=== PATIENT | male | born 1950 | race Caucasian/White ===

== ENCOUNTER 2022-01-14 08:02 | Outpatient (REF) | payer OTHER, SELFPAY ==
--- NOTE | ~2022-01-14 | US_ITS ---
EXAMINATION: RIGHT AND LEFT LOWER EXTREMITY VENOUS ULTRASOUND (REFLUX EXAM) CLINICAL INDICATION: Leg edema. COMPARISON: None TECHNIQUE: Color flow triplex imaging and compression Doppler was performed to evaluate both the deep and the superficial systems bilaterally. To evaluate the superficial system, the examination was performed in the upright position. Color-flow Doppler ultrasound and compression ultrasound were utilized. In addition, maneuvers were utilized to demonstrate reflux. FINDINGS: 1. DEEP VENOUS ULTRASOUND OF THE RIGHT LOWER EXTREMITY: Respiratory variation, normal compression and augmented flow are noted in the right common femoral vein as well as the right popliteal vein and there is no evidence of deep venous thrombosis at these locations. There is no evidence of reflux in the common femoral vein. There is some reflux within the popliteal vein up to 0.8 seconds in duration. No popliteal fossa cyst. No popliteal artery aneurysm. 2. SUPERFICIAL ULTRASOUND WITH DOPPLER OF RIGHT LOWER EXTREMITY: The right great saphenous vein at the saphenofemoral junction measures 8 mm, at the midthigh 7 mm, [id number] 7 mm, [id number] 6 mm, at midcalf 6 mm and at the ankle measures 3 mm. There is venous insufficiency seen for greater than 3 seconds in duration from the saphenofemoral junction through the mid calf. At the ankle there is reflux present up to about 1.1 seconds duration. The right small saphenous vein measures 6 mm and shows no significant reflux. There is a 7 mm reservation sales agent seen within the proximal calf. 3. DEEP VENOUS ULTRASOUND OF THE LEFT LOWER EXTREMITY: Respiratory variation, normal compression and augmented flow are noted in the left common femoral vein as well as the left popliteal vein and there is no evidence of deep venous thrombosis at these locations. There is no evidence of reflux in the deep system in either the common femoral vein or the popliteal vein. No popliteal fossa cyst or popliteal artery aneurysm. 4. SUPERFICIAL ULTRASOUND WITH DOPPLER OF LEFT LOWER EXTREMITY: Left great saphenous vein at the saphenofemoral junction measures 9 mm, at the midthigh 3 mm, ehqeo-jus-[id number] 2 mm, bzynj-bjh-[id number] 3 mm, at midcalf 2 mm and at the ankle measures 2 mm. Within the proximal thigh there is venous insufficiency out to 1.5 seconds however there is no reflux evident at the saphenofemoral junction. The left small saphenous vein measures 2 mm and shows no reflux. US/US venous duplex LE BI IMPRESSION: 1. No evidence of acute deep venous thrombosis of the right or left legs. 2. Venous insufficiency throughout the right lower extremity from saphenofemoral junction through ankle. 3. Venous insufficiency within the left proximal thigh but without insufficiency noted at the saphenofemoral junction. 4. A 7 mm right calf reservation sales agent.
== END 2022-01-14 08:03 | disposition home or self-care (01) ==
LOC: HO.US 08:02
PROVIDERS: Visit Provider Physician Assistant
DX: R60.0 Localized edema (principal)
CPT/HCPCS: 93970

== ENCOUNTER → 2024-09-24 10:02 | Outpatient (REF) | payer OTHER, SELFPAY ==
--- NOTE | 2024-09-24 10:11 | CA_ITS ---
Transthoracic Echocardiogram Patient (Last, First, Middle): Ganesh Rae, Gender: Male Date of : 1950 Age: 74 Procedure Date: 09/24/2024 Procedure Type: Transthoracic Echocardiogram Location: OP Height: 182.88 cm Weight: 96.62 kg BSA: 2.19 m2 Heart Rate: bpm BP: 158 / 78 mmHg Traffic Lieutenant: GENTRY Referring MD: Dolly PALACIO Symptoms: MATEUSZ.2 PALPS Study Quality: Fair, contrast ECG Rhythm: Sinus Conclusions: - The left ventricular systolic function is normal. The calculated ejection fraction is 66% by biplane method. - There is moderately increased left ventricular wall thickness. - There is mild calcification of the aortic valve. - There is mild mitral annular calcification. Findings Procedure Information Contrast agent, definity, is being given per protocol without apparent complications. Left Ventricle Normal left ventricular cavity size. There is moderately increased left ventricular wall thickness. The left ventricular systolic function is normal. The calculated ejection fraction is 66% by biplane method. There is no evidence of regional wall motion abnormalities. Evidence suggests grade I (mild) diastolic dysfunction. Right Ventricle Normal right ventricular cavity size and systolic function. Atria The left atrium is mildly dilated. The right atrium is normal in size. Aortic Valve There is a normal trileaflet aortic valve. There is mild calcification of the aortic valve. There is no aortic valve stenosis. There is no aortic valve regurgitation. Mitral Valve There is mild mitral annular calcification. There is no mitral valve regurgitation. There is no mitral valve stenosis. Pulmonic Valve The pulmonic valve is likely normal. Tricuspid Valve There is mild tricuspid valve regurgitation. There is no evidence of pulmonary hypertension. Great Vessels The asc aorta is normal in size. Venous The inferior vena cava is normal in size and collapses greater than 50% with inspiration. Pericardium/Pleural There is no evidence of pericardial effusion. Prior Study Comparison No prior study available for comparison. Measurements 2D Linear Measurements IVSd: 1.18 0.6-0.9/0.6-1.0 cm LVIDd: 4.96 3.9-5.3/4.2-5.9 cm LVIDd Index: 2.26 2.4-3.2/2.2-3.1 cm/m2 LVIDs: 3.58 2.0-3.6 cm LVPWd: 1.30 0.7-1.1 cm LA Diam: 4.00 2.7-3.8/3.0-4.0 cm LAIDs Index: 1.83 1.5-2.3 cm/m2 LV Mass: 301.40 67-162/88-224 g LV Mass Index: 137.63 43-95/49-115 g/m2 LVOT Diam: 2.00 3.0+(-)1.3 cm 2D Systolic Function EF 4C: 58.90 >55% EF 2C: 70.20 >55% EF BiP: 66.20 >55% Mitral Valve MV Pk E: 0.60 MV PK A: 1.05 MV Decel Time: 371.00 E/A: 0.60 E'Lateral: 3.81 E'Medial: 2.50 E/E' Med: 24.20 E/E' Lat: 15.90 PHT: 109.00 MVA PHT: 2.02 Decel [place]: 1.63 Aortic Valve AoV Pk Eddie: 1.62 AoV Mn Eddie: 1.19 AoV VTI: 0.38 AoV Pk Grad: 10.00 Aov Mn Grad: 6.00 MICHELLE Cont.VTI: 1.84 LVOT LVOT Pk Eddie: 1.01 LVOT Mn Eddie: 0.64 LVOT VTI: 0.22 LVOT Pk Grad: 4.00 LVOT Mn Grad: 2.00 LVOT Diam: 2.00 LVOT Area: 3.14 Diastolic Function MV Pk E: 0.60 MV Pk A: 1.05 E/A: 0.60 E'Medial: 2.50 E/E' Med: 24.20 E' Laterial: 3.81 E/E' Lat: 15.90 Right Ventricle TAPSE (mm): 24.30 TVS' Eddie: 13.10 Tricuspid Valve TR Pk Eddie: 2.81 TR Pk Grad: 32.00 RA Press: 3.00 RVSP: 35.00 Great Vessels Aorta Sinus of Valsalva: 3.62 2.0-3.[address] [place]: 2.86 1.7-3.4 cm Ao Asc: 3.90 2.1-3.4 cm Updated in Other Vendor System with Status of Final Ryan Galarza MD electronically signed on 09/24/2024 11:52:47 AM with status of Final
== END ==
LOC: HO.CARD 10:02
PROVIDERS: PCP Internal Medicine; Visit Provider Physician Assistant
DX: R00.2 Palpitations (principal)
CPT/HCPCS: 93242; 93306; Q9957

== ENCOUNTER → 2024-09-24 10:11 | Outpatient (BNV) | payer OTHER, SELFPAY | PROVIDERS: PCP Internal Medicine; Visit Provider Internal Medicine | DX: I35.0 Nonrheumatic aortic (valve) stenosis (principal); I34.81 Nonrheumatic mitral (valve) annulus calcification | CPT/HCPCS: 93306 ==

== ENCOUNTER 2024-09-27 13:39 | Outpatient (REF) | payer OTHER, SELFPAY ==
--- NOTE | ~2024-09-27 | XR_ITS ---
EXAMINATION: XR SCREENING FILM FOR MR HISTORY: PRE MRI ORBITS COMPARISON: There are no prior studies for comparison. FINDINGS: Three views of the orbits demonstrate no radiopaque foreign body. The visualized paranasal sinuses are clear. XR/XR pre mri screening IMPRESSION: No evidence of radiopaque foreign body in the orbits. Electronically signed by: Uli Bedoya MD 09/27/2024 03:10 PM EDT
--- OUTSIDE RECORDS SUMMARY | 2024-09-27 15:59 | XMS_ITS | Data Portability ---
Author Organization [facility] Service Address [address] [place] [address] Assessment No assessment recorded. Plan of Treatment Reminders Order Date Submit Date Provider Last Modified By Organization Details Last Modified Time Details Appointments FOLLOW UP 15 2024 09:45A PIA WRIGHT Not available Not available Not available Lab uric acid, serum or plasma 2024 025 [facility], [place], [address], 09/03/2024 15:23:03 hemoglobi n A1c, QN, blood 2024 025 [facility], [place], [address], 09/03/2024 15:23:03 CMP, serum or plasma 2024 025 [facility], [place], [address], 09/03/2024 15:23:03 CBC w/ auto diff 2024 025 [facility], [place], [address], 09/03/2024 15:23:03 lipid panel, blood 2024 025 [facility], [place], [address], 09/03/2024 15:23:03 lipid panel, serum 2023 024 [facility], [place], [address], 07/27/2024 11:42:03 CMP, serum or plasma 2023 024 [facility], [place], [address], 07/27/2024 11:38:28 hemoglobi n A1c, QN, blood 2023 024 [facility], [place], [address], 07/27/2024 11:21:23 CBC w/ auto diff 2023 024 [facility], [place], [address], 07/27/2024 11:11:44 CBC w/ auto diff 2024 025 [facility], [place], [address], 07/27/2024 11:11:44 hemoglobi n A1c, QN, blood 2024 025 [facility], [place], [address], 07/27/2024 11:21:22 CMP, serum or plasma 2024 025 [facility], [place], [address], 07/27/2024 11:38:28 lipid panel, serum 2024 025 [facility], [place], [address], 07/27/2024 11:42:03 lipid panel, serum 2023 024 [facility], [place], [address], 12/20/2023 11:10:44 CMP, serum or plasma 2023 024 [facility], [place], [address], 09/23/2023 12:20:40 hemoglobi n A1c, QN, blood 2023 024 [place], [place], [address], 12/20/2023 10:46:50 CBC w/ auto diff 2023 024 [facility], [place], [address], 09/23/2023 12:20:40 hemoglobi n A1c, QN, blood 2023 024 [facility], [place], [address], 04/09/2024 15:18:40 lipid panel, serum 2023 024 [facility], [place], [address], 04/09/2024 12:24:40 lipid panel, serum 2023 025 [facility], [place], [address], 04/09/2024 12:24:40 hemoglobi n A1c, QN, blood 2023 024 [facility], [place], [address], 04/09/2024 15:18:40 Referral orthopedi c surgeon referral 2023 024 [facility], [address] [place] [address], [address], 09/28/2023 08:17:50 Procedures None recorded. Surgeries None recorded. 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 2024 025 [facility], [address] [place], [address], 08/06/2024 09:23:32 US, duplex, carotid artery 2023 024 [facility] Central Scheduling (Not Breast), [address] [place], [address], 04/13/2024 08:25:29 Medication Orders oxycodone 5 mg tablet 2024 025 [facility], [address] [place], [address], 09/03/2024 15:25:12 sildenafi l 100 mg tablet 2023 024 [facility], [address] [place] [address], [address], 04/11/2024 09:55:21 metformin ER 500 mg tablet,ex tended release 24 hr 2023 024 [facility], [address] [place] [address], [address], 04/11/2024 09:55:21 allopurin ol 300 mg tablet 2023 024 [facility], [address] [place] [address], [address], 12/21/2023 09:42:11 metformin ER 500 mg tablet,ex tended release 24 hr 2023 024 [facility], [address] [place] [address], [address], 12/21/2023 09:42:13 clonidine HCl 0.1 mg tablet 2023 024 [facility], [address] [place] [address], [address], 12/21/2023 09:42:10 furosemid e 20 mg tablet 2023 024 [facility], [address] [place] [address], [address], 12/21/2023 09:42:07 metoprolo l succinate ER 100 mg tablet,ex tended release 24 hr 2023 024 [facility], [address] [place] [address], [address], 12/21/2023 09:42:08 lovastati n 40 mg tablet 2023 024 [facility], [address] [place] [address], [address], 12/21/2023 09:42:04 Patient TargetsNo targets recorded. Patient InstructionsNo instructions recorded. Reason for Referral Orthopedic Surgeon Referral for Pain in right hand right hand pain, fall on outstretched hand with damage to the skin and loss of ROM Referring Physician: Dolly Chino, Internal Medicine, Encounter Date: 09/23/2023 Results Created Date Observation Date Name Description Value Unit Range Abnormal Flag Note LastModifiedBy Organization Detail LastModifiedTime 09/25/19 25 09/24/2024 US, echo ardio gram No observ ation record ed. [email or web address] [facility] (Medical Records) [address] [place] [address], [address], 09/24/2024 15:49:29 09/28/19 25 09/27/2024 imagi ng/di agnos tic resul t No observ ation record ed. [facility] (Medical Records) [address] [place], [address], 09/27/2024 15:14:25 Result Notes None recorded. 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 072035595 Active 2021 PIA JJ [address] [place], [address], [facility] 2 10:26:52 Venous insuffic iency of leg 599840192 Active 2021 PIA JJ [address] [place], [address], [facility] 2 10:27:04 Herpes zoster 7049703 Active 2021 PIA JJ [address] [place], [address], [facility] 2 15:03:54 Strain of rectus abdominu s muscle 738710507 Active 2021 PIA JJ [address] [place], [address], [facility] 2 11:49:14 Cervical radiculo josué 06475000 Active 2021 PIA JJ [address] [place], [address], [facility] 2 14:29:25 Thoracic back pain 136033744 Active 2021 PIA JJ [address] [place], [address], [facility] 2 14:29:40 Rib pain 654759504 Active 2021 PIA JJ [address] [place], [address], [facility] 2 14:33:14 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 56078662047 9101 Active 2021 PIA JJ [address] [place], [address], [facility] 2 13:04:57 Neck pain 45196684 Active 2021 PIA JJ [address] [place], [address], [facility] 2 10:12:30 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 PIA JJ [address] [place], [address], [facility] 3 13:37:14 Osteoart hritis of left knee joint 48988933306 9109 Active 2022 Eyad Venegas DO [address] [place], [address], [facility] 3 16:54:36 Type 2 diabetes mellitus 93316505 Active 2023 PIA JJ [address] [place], [address], [facility] 4 09:46:22 Atypical chest pain 189398118 Active 2023 PIA JJ [address] [place], [address], [facility] 4 09:46:43 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 526334527 Active 2023 PIA JJ [address] [place], [address], [facility] 4 09:52:23 Acute allergic reaction 878324848 Active 2023 PIA JJ [address] [place], [address], [facility] 4 12:02:57 Pain in right hand 74934415238 9109 Active 2023 PIA JJ [address] [place], [address], [facility] 4 12:03:42 Carotid atherosc lerosis 969806575 Active 2023 PIA JJ [address] [place], [address], [facility] 4 09:42:41 Chronic kidney disease stage 2 436038838 Active 2023 PIA JJ [address] [place], [address], [facility] 4 09:47:03 Carotid artery occlusio n 352430093 Active 2024 PIA JJ [address] [place], [address], [facility] 5 10:55:13 Carotid artery occlusio n 154609531 Active 2024 PIA JJ [address] [place], [address], [facility] 5 10:55:37 Arterial retinal branch occlusio n 06335860 Active 2024 PIA JJ [address] [place], [address], [facility] 5 10:57:17 Arterial retinal branch occlusio n 80635618 Active 2024 PIA JJ [address] [place], [address], [facility] 5 10:57:29 Palpitat ions 25056930 Active 2024 PIA JJ [address] [place], [address], [facility] 5 11:02:38 Fracture of rib 43326897 Active 2024 PIA JJ [address] [place], [address], [facility] 5 15:24:44 [facility] hyperten bi 53721789 [facility] 16:47:12 Gout 25735625 Active 2017 [facility] 8 16:47:16 Hyperlip idemia 00626204 Active 2017 [facility] 8 16:47:24 Impotenc e Active 2017 OSIEL Nair [address] [place] [address], [address], [facility] 8 09:45:26 Impaired fasting glycemia 394356006 Completed 201709/12/2019 Eyad Venegas DO [address] [place] [address], [address], [facility] 0 11:12:17 Type 2 diabetes mellitus without complica tion 952962186 Active 2017 OSIEL Nair [address] [place], [address], [facility] 8 10:41:07 Problem Notes None recorded. Procedures Surgical History Date Name Laterality Status Provider Name and Address Organization Details Recorded Time 023 Corticosteroid Injection completed Eyad Venegas DO [address] [place] [address], [address], [facility] 03/25/2023 16:53:57 Imaging Results Imaging Date Name Status LastModified by Organization Details LastModified Time 09/24/2024 US, echocardiogram completed [email or web address] [facility] (Medical Records) [address] [place], [address], 09/24/2024 15:49:29 09/27/2024 imaging/diagnostic result active [facility] (Medical Records) [address] [place], [address], 09/27/2024 15:14:25 Procedure Notes None recorded. Medical Equipment None Reported. Allergies No known drug allergies Medications Name Sig Start Date Stop Date Status Note LastModified by Organization Details LastModified Time amoxicill in 500 mg capsule TAKE 1 CAPSULE BY MOUTH EVERY 8 HOURS UNTIL ALL TAKEN 11/10 completed Not Available Not Available Not Available clonidine HCl 0.1 mg tablet Take 2 tablets every day by oral route for 90 days. active Not Available Not Available No t Available prednison e 10 mg tablet 50 mg x 2 days40 mg x 2 days30 mg x 2 days20 mg x 2 days 10 mg x 2 days 02/16 completed Not Available Not Available Not Available ibuprofen 800 mg tablet TAKE 1 TABLET BY MOUTH EVERY 6 HOURS NEEDED FOR PAIN active Not Available Not Available No t Available metoprolo l succinate ER 50 mg tablet,ex tended release 24 hr Take 1 tablet every day by oral route for 30 days. 02/03 completed increase to 100 mg Not Available Not Available Not Available valacyclo vir 1 gram tablet Take 1 tablet twice a day by oral route for 7 days. 02/16 completed Not Available Not Available Not Available meloxicam 15 mg tablet Take 1 tablet every day by oral route with meals for 30 days. 03/09 completed Not Available Not Available Not Available FreeStyle Lancets 28 gauge active once per day Not Available Not Available Not Available lovastati n 40 mg tablet TAKE 1 TABLET BY MOUTH EVERY DAY active Not Available Not Available No t Available metoprolo l succinate ER 100 mg tablet,ex tended release 24 hr TAKE 1 TABLET BY MOUTH EVERY DAY active Not Available Not Available No t Available amlodipin e 5 mg tablet TAKE 1 TABLET BY MOUTH DAILY NEEDS APPT FOR FURTHER REFILLS. CALL OFFICE 11/10 completed Not Available Not Available Not Available tramadol 50 mg tablet TAKE 1 TABLET BY MOUTH EVERY 6 HOURS NEEDED active Not Available Not Available No t Available sildenafi l 100 mg tablet TAKE 1 TABLET BY MOUTH ONCE A DAY NEEDED DIRECTED 2023 active Not Available Not Available Not Avai lable oxycodone -acetamin ophen 5 mg-325 mg tablet Take 1 tablet every 6 hours by oral route as needed for 7 days. 04/28 completed Not Available Not Available Not Available lidocaine 5 % topical patch APPLY ONE PATCH TOPICALL Y TO CLEAN, DRY SKIN. LEAVE ON FOR 12 HOURS THEN REMOVE. MUST WAIT AT LEAST 12 HOURS BEFORE APPLYING PATCH(ES ) AGAIN. active Not Available Not Available No t Available ibuprofen 200 mg tablet Take 1 tablet every 6 hours by oral route. 09/06 completed Not Available Not Available Not Available gabapenti n 300 mg capsule TAKE 1 CAPSULE BY MOUTH THREE TIMES A DAY 05/10 completed HOLD FOR NOW Not Available Not Available Not Available diclofena c sodium 75 mg tablet,de layed release TAKE 1 TABLET BY MOUTH TWICE DAILY WITH MEALS FOR 20 DAYS 01/21 completed Not Available Not Available Not Available allopurin ol 300 mg tablet TAKE 1 TABLET BY MOUTH EVERY DAY active Not Available Not Available No t Available mupirocin 2 % topical ointment 09/06 completed Not Available Not Available Not Available furosemid e 20 mg tablet Take 1 tablet every day by oral route for 90 days. active Not Available Not Available No t Available gabapenti n 100 mg capsule TAKE 1 CAPSULE BY MOUTH ONCE DAILY DIRECTED FOR 30 DAYS 03/09 completed Not Available Not Available Not Available colchicin e 0.6 mg tablet Take 1 tablet every day by oral route for 10 days. 04/28 completed Not Available Not Available Not Available metformin ER 500 mg tablet,ex tended release 24 hr TAKE 1 TABLET BID BY MOUTH EVERY DAY active Not Available Not Available No t Available lisinopri l 2.5 mg tablet 02/10 completed Not Available Not Available Not Available amoxicill in 875 mg-potass ium clavulana te 125 mg tablet Take 1 tablet every 12 hours by oral route. 09/06 completed Not Available Not Available Not Available oxycodone 5 mg tablet TAKE 1 TABLET BY MOUTH EVERY 4 TO 6 HOURS NEEDED FOR 7 DAYS active Not Available Not Available No t Available Benicar 40 mg tablet Take 1 tablet every day by oral route. 11/18 completed Not Available Not Available Not Available olmesarta n 40 mg-hydroc hlorothia zide 25 mg tablet TAKE 1 TABLET BY MOUTH ONCE A DAY 04/27 completed Not Available Not Available Not Available Boostrix Tdap 2.5 Lf unit-8 mcg-5 Lf/0.5 mL intramusc ular syringe 04/28 completed Not Available Not Available Not Available FreeStyle Lite Strips use as directed 2017 active Not Available Not Available Not Avai lable Eliquis 2.5 mg tablet 11/10 completed Not Available Not Available Not Available Trulicity 0.75 mg/0.5 mL subcutane ous pen injector INJECT THE CONTENTS OF 1 PEN UNDER THE SKIN ONCE EVERY WEEK 06/29 completed Not Available Not Available Not Available Ozempic 0.25 mg or 0.5 mg (2 mg/1.5 mL) subcutane ous pen injector Inject 0.25 mg every week by subcutan eous route for 90 days. 05/17 completed Not Available Not Available Not Available Vitals Date Recorded Body height Body mass index (BMI) Body weight Heart rate Respiratory rate Oxygen saturation Oxygen saturation in Arterial blood by Pulse oximetry Body temperature Systolic blood pressure Diastolic blood pressure Provider Name and Address Organization Details Last Updated DateTime 4 179.71 cm 31.4 kg/m2 895580. 18 g 76 /min 16 /min 96 % 96 % 98 [degF] 126 mm[Hg] 76 mm[Hg] [facility] 4 11:47:07 Date Recorded Body height Body mass index (BMI) Body weight Heart rate Oxygen saturation Oxygen saturation in Arterial blood by Pulse oximetry Systolic blood pressure Diastolic blood pressure Provider Name and Address Organization Details Last Updated DateTime 4 179.07 cm 31.4 kg/m2 454234. 51 g 64 /min 97 % 97 % 126 mm[Hg] 76 mm[Hg] [facility] 4 09:29:38 Date Recorded Body height Body mass index (BMI) Body weight Heart rate Oxygen saturation Oxygen saturation in Arterial blood by Pulse oximetry Systolic blood pressure Diastolic blood pressure Provider Name and Address Organization Details Last Updated DateTime 4 179.07 cm 31.4 kg/m2 662214. 15 g 54 /min 98 % 98 % 164 mm[Hg] 78 mm[Hg] Emilee Crooks [facility] 4 09:37:42 Date Recorded Body height Body mass index (BMI) Body weight Heart rate Oxygen saturation Oxygen saturation in Arterial blood by Pulse oximetry Systolic blood pressure Diastolic blood pressure Provider Name and Address Organization Details Last Updated DateTime 5 179.07 cm 31.7 kg/m2 473499. 69 g 55 /min 97 % 97 % 142 mm[Hg] 80 mm[Hg] Emilee Crooks [facility] 5 10:48:39 Social History Question Answer Notes LastModified by Organizat ion Details LastModified Time Tobacco Smoking Status Former Smoker Not Available [facility] 04/01/2020 03:36:24 What Is Your Occupation? Retired [id number] Information not available 04/01/2020 What Was The Date Of Your Most Recent Tobacco Screening? 07/30/2024 [email or web address] Information not available 07/30/2024 How Many Years Have You Smoked Tobacco? 15 [id number] Information not available 04/01/2020 Do You Or Have You Ever Used Any Other Forms Of Tobacco Or Nicotine? No [email or web address] Information not available 11/05/2022 Sex: Unknown Functional Status None recorded. Mental Status None recorded. Family History Nothing Reported. Medical History No medical history recorded. Immunizations Vaccine Type Date Status Note Provider Nam e and Address Organization Details Recorded Time COVID-19, mRNA, LNP-S, PF, 30 mcg/0.3 mL dose 2 completed Not Available [facility] 07/20/2023 12:16:38 influenza, unspecified formulation 2 completed Not Available [facility] 07/20/2023 12:16:38 Pneumococcal Conjugate, unspecified formulation 3 completed Not Available [facility] 07/20/2023 12:16:38 Tdap 0 completed Not Available [facility] 07/20/2023 12:16:38 Pneumococcal conjugate PCV 13 11/23/202 0 completed Not Available [facility] 07/20/2023 12:16:38 COVID-19, mRNA, LNP-S, PF, 30 mcg/0.3 mL dose 1 completed Not Available [facility] 07/20/2023 12:16:37 COVID-19, mRNA, LNP-S, PF, 30 mcg/0.3 mL dose 1 completed Not Available [facility] 07/20/2023 12:16:38 Tdap 0 completed Not [facility] 07/20/2023 12:16:38 Past Encounters Encounter ID Performer Location Encounter Start Date Encounter Closed Date Diagnosis/Indication Diagnosis SNOMED-CT Code Diagnosis ICD10 Code Diagnosis Note [id number] Eyad Venegas DO [facility] [address] [facility],[place] [address] 11/15/2017 09:17:54 11/15/2017 13:19:28 Hyperlipidemia 95366854 E78.5 will recheck Essential hypertension 50611934 I10 Gout 50895415 M10.9 Impaired f asting glycemia 107548584 R73.01 Impotence 451665839 N52. 9 Venereal d isease screening 864153277 Z11.3 [id number] Eyad Venegas DO [facility] [address] [facility], [place] [address] 12/06/2017 10:17:52 12/06/2017 11:20:43 Type 2 diabetes mellitus without complication 882882106 E11.9 meter teaching diet and exercise Hyperlipidemia 94041486 E78.5 will recheck in 6 months generally at goal discussed improvemen ts for increasing HDL Gout 47658158 M10.9 mildly elevated no gout flares will recheck Essential hypertension 04987559 I10 elevated likely very anxious [id number] Eyad Venegas DO [facility] [address] [facility], [place] [address] 12/22/2018 09:31:43 12/22/2018 10:10:18 Type 2 diabetes mellitus without complication 601257180 E11.9 will add metformin xr Essential hypertension 78974803 I10 Abdominal aortic aneurysm screening 589175998 Z13.6 Hepatitis C screening 41 8904256 Z11.59 [id number] Eyad Venegas [facility] [address] [facility],[place] [address] 06/08/2019 14:17:09 06/08/2019 14:45:52 Type 2 diabetes mellitus without complication 373444350 E11.9 metformin xr 500 a1c 7.2 was 6.8 was thru holidays was [pos for microalb Hyperlipidemia 62897479 E78.5 cont lovastatin all other lab good Essential hypertension 44948397 I10 stab;le no need to change meds [id number] Eyad Venegas [facility] [address] [facility],[place] [address] 09/12/2019 10:44:31 09/12/2019 11:50:27 Essential hypertension 31932449 I10 stab;le no need to change meds Gout 81661045 M10.9 stable since on allopurino l Type 2 abhay betes mellitus without complication 157642417 E11.9 metformin xr 500 a1c is 7.4 was 7.2 and was 6.8 was thru holidays was [pos for microalb [id number] Eyad Venegas [facility] [address] [facility],[place] [address] 09/18/2019 09:56:50 09/18/2019 11:33:37 Herpes zoster 4787864 B02.9 Type 2 abhay betes mellitus without complication 730596903 E11.9 meter teaching diet and exercise Essential hypertension 26742525 I10 mildly elevated [id number] Eyad Venegas [facility] [address] [facility],[place] [address] 01/28/2020 15:11:55 01/28/2020 15:35:02 Type 2 diabetes mellitus without complication 530538426 E11.9 metformin xr 500 a1c is 7.4 was 7.2 and was 6.8 was thru holidays was [pos for microalb Essential hypertension 19376939 I10 stab;le no need to change meds Pain in left foot 349123 6079 53287 M79.672 from trauma on bottom of foot [id number] Eyad Venegas [facility] [address] [facility] [address] 10/08/2020 09:09:27 10/08/2020 10:08:17 Type 2 diabetes mellitus without complication 494265815 E11.9 a1c better now at 6.5 has cut down etoh Essential hypertension 42306434 I10 stab;le no need to change meds Hyperlipidemia 23498772 E78.5 cont lovastatin all other lab good Microalbuminuria 0714269 06 R80.9 rech in 3 mo [id number] Eyad Venegas [facility] [address] [facility] [id number] 11/05/2020 14:36:37 11/05/2020 15:00:02 Pain of left hip joint 9740541952 81356 M25.552 will start with XR, NSAID and follow up with ortho as well [id number] Eyad Venegas [facility] [address] [facility] [id number] 01/21/2021 14:39:46 01/21/2021 15:39:13 Essential hypertension 20042932 I10 BP recheck 200/100sta rt on metoprolol 50 mgcheck in two weeks Pain of ri ght hip joint 8039183729 87757 M25.551 will start on tramadol for management of tooth and hip pain until he has surgery Malignant essential hypertension [id number] I10 recheck prior to at 01/21/21con tinue current medication s [id number] Eyad Venegas [facility] [address] [facility] [address] [address] 02/03/2021 09:19:49 02/03/2021 11:53:10 Essential hypertension 91737026 I10 BP recheck was 160/70will increase dose to 100 mg metoprolol will also have him continue tramadol for pain control as well Osteoarthritis of hip 23 2362456 M16.12 has fu with surgeon [id number] Eyad Venegas [facility] [address] [facility] [address],[place] [address] 02/10/2021 08:53:57 02/10/2021 09:59:58 Essential hypertension 38296265 I10 bp is now stable with medication adjustment and he is now cleared for the proposed procedure Gout 63893430 M10.9 stable since on allopurino l Type 2 abhay betes mellitus without complication 320693016 E11.9 a1c better now at 6.5has kept the weight off Arthropath y of left hip joint [id number] 2727653 M12.852 he will need to have his pre op eval next week after we get this bp down Primary er ectile dysfunction 792255283 N52.9 Preoperati ve cardiovascular examination 462599175 Z01.810 now with bp controlled , the patient is cleared for the proposed hip surgery as classified by the 2017 ACC cardiac risk stratifica tion (revised)p atient understand s to continue his bp meds on day of surgery with sip of water.he is to maintain observatio n of his bp the days prior to his surgery and is to notify us if any suddin change or problem. [id number] Eyad Venegas, [facility] [address] [facility], [place] [address] 04/27/2021 11:05:08 04/27/2021 15:18:02 Essential hypertension 95831699 I10 bp is now stable with medication adjustment and he is now cleared for the proposed procedure Hyperlipidemia 22134992 E78.5 cont lovastatin all other lab good [id number] Eyad Venegas [facility] [address] [facility],[place] [address] 11/10/2021 09:27:48 11/10/2021 10:03:35 Essential hypertension 64492663 I10 will fu with d/c amlodipine and start lasix Type 2 abhay betes mellitus without complication 159979964 E11.9 A1c is 6.4% which is excellent Hyperlipidemia 91397440 E78.2 low cardiovasc ular risk score, cholestero l is borderline , will hold off increasing statin dosing due to side effect risk for patient Edema of l ower extremity 430804995 R60.0 will fu with US duplex venous Primary er ectile dysfunction 009634429 N52.1 will send to refill Gout 24574099 M10.071 will fu with refill [id number] Eyad Venegas [facility] [address] [facility],[place] [address] 02/05/2022 11:22:33 02/05/2022 15:13:26 Herpes zoster 6019553 B02.9 probable shingles [id number] Eyad Venegas [facility] [address] [facility],[place] [address] 02/16/2022 11:13:03 02/16/2022 12:00:37 Strain of rectus abdominus muscle 060896151 S39.011A will start on meloxicam and gabapentin for the muscle strain Costal chondritis 070058 04 M94.0 will call with an update Hyperlipidemia 99336056 E78.2 low cardiovasc ular risk score, cholestero l is borderline , will hold off increasing statin dosing due to side effect risk for patient [id number] [facility] [address] [facility],[place] [address] 03/09/2022 14:10:42 03/09/2022 16:29:48 Type 2 diabetes mellitus without complication 010562132 E11.9 A1c is 6.4% which is excellent Hyperlipidemia 11826350 E78.2 low cardiovasc ular risk score, cholestero l is borderline , will hold off increasing statin dosing due to side effect risk for patient Essential hypertension 56167856 I10 will fu with d/c amlodipine and start lasix Cervical radiculopathy 83275858 M54.12 will f/u with XR cervical spine and thoracic for continued Thoracic back pain 88875 8004 M54.6 will f/u with XR cervical spine and thoracic for continued Rib pain 693340566 R07.8 1 [id number] Eyad Venegas [facility] [address] [facility] [place] [address] 04/28/2022 09:46:33 04/28/2022 12:03:49 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 8986750686 63996 M48.14 will be seeing PT for this and ortho Neck pain 36420375 M54.2 will f/u with patient seeing specialist told patient we cannot refill the percocet but we can try the tramadol again Hyperlipidemia 94548897 E78.2 patient got blood-work done when he was eating holiday foods beforehand [id number] Eyad Venegas DO [facility] [address] [facility] [address],[place] [address] 09/06/2022 13:21:01 09/06/2022 14:06:31 Essential hypertension 34008883 I10 add clonidinew ill have to taper of the metoprolol after his surgeryavo iding to many changes at once Type 2 abhay betes mellitus without complication 725305556 E11.9 A1c is 6.4% which is excellent 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 has procedure scheduled for this week (surface level cancerous changes)leif Michael do the procedure Neck pain 65336694 M54.2 restart tramadolha s procedure coming up if very painful told him we could start him on oxy for a week course [id number] Eyad Venegas [facility] [address] [facility],[place] [address] 10/04/2022 09:05:22 10/04/2022 09:35:23 Hypertensive disorder 57023064 I10 stable on med combowill continue to monitor Type 2 abhay betes mellitus without complication 347604979 E11.9 A1c is 6.4% which is excellentw [place] [id number] Eyad Venegas DO [facility] [address] [facility] [address] [address] 11/05/2022 09:50:34 11/05/2022 10:32:22 Essential hypertension 96601384 I10 doing better on his current combinatio n of meds Type 2 abhay betes mellitus without complication 016682056 E11.9 stable Cervical radiculopathy 60919203 M54.12 stable [id number] Eyad Venegas [facility] [address] [facility] [address],[place] [facility] [place] [address] 12/07/2022 09:20:05 12/07/2022 15:26:15 Type 2 diabetes mellitus without complication 250828935 E11.9 stable Hyperlipidemia 46661406 E78.2 working on his diethis cholestero l was good; LDL a little elevated but easily correctabl e with diet changes Gout 70255497 M10.071 stable [id number] Eyad Venegas [facility] [address] [facility] [address] [address] 03/16/2023 09:32:22 03/16/2023 10:03:23 Gout 11514462 M10.071 stable Primary er ectile dysfunction 559759557 N52.1 will send to refill [id number] Eyad Venegas [facility] [address] [facility],[place] [address] 03/25/2023 16:17:45 03/28/2023 11:54:37 Essential hypertension 43781600 I10 bp is now stable with medication adjustment and he is now cleared for the proposed procedure Hyperlipidemia 55813104 E78.2 cont lovastatin all other lab good Osteoarthr itis of left knee joint 3428861844 87779 M17.12 awais inj well carley [id number] Eyad Venegas [facility] [address] [facility],[place] [address] 05/10/2023 08:57:05 05/11/2023 08:26:49 Type 2 diabetes mellitus 16054211 E11.9 will set up with ozempic for better sugar control Cervical radiculopathy 96118226 M54.12 stable Essential hypertension 39871299 I10 BP stable at home [id number] Eyad Venegas [facility] [address] [facility] [address] [address] 06/29/2023 09:22:22 06/29/2023 10:01:34 Essential hypertension 18021647 I10 BP stable at home Hyperlipidemia 03216083 E78.2 working on his diethis cholestero l was good; LDL a little elevated but easily correctabl e with diet changes Type 2 abhay betes mellitus without complication 402427388 E11.9 stable Type 2 abhay betes mellitus 02105435 E11.9 [facility] since it can be pricey for patient Atypical chest pain 1025 06930 R07.89 will set up with US echo Neck pain 40225720 M54.2 restart tramadolha s procedure coming up if very painful told him we could start him on oxy for a week course Ulnar nerv e entrapment at elbow 039942654 G56.21 will monitor to see what triggers it [id number] Eyad Venegas [facility] [address] [facility] [address] [address] 09/14/2023 08:37:53 09/19/2023 13:24:55 Type 2 diabetes mellitus without complication 015583290 E11.9 stable [id number] Eyad Venegas [facility] [address] [facility] [address] [address] 09/23/2023 11:41:55 09/23/2023 13:46:29 Squamous cell carcinoma of lip 936497817 C44.02 stable Type 2 abhay betes mellitus without complication 441871361 E11.9 stable Acute roslyn rgic reaction 859855605 T78.40XD probable severe reaction to pollen Pain in right hand 89511 46366 30395 M79.641 will send in referral [id number] Eyad Venegas [facility] [address] [facility],[place] [address] 12/21/2023 09:13:18 12/23/2023 12:14:46 Depression screening 466417617 Z13.31 negative Gout 09340349 M10.071 stable Essential hypertension 18685616 I10 BP stable at home Hyperlipidemia 42868438 E78.2 working on his diethis cholestero l was good; LDL a little elevated but easily correctabl e with diet changes Type 2 abhay betes mellitus without complication 831244873 E11.9 [facility] suggested going back on the injectable (but will get them the name of the pharmacy) [id number] Eyad Venegas [facility] [address] [facility] [address] [address] 04/11/2024 09:29:10 04/11/2024 09:57:11 Primary erectile dysfunction 679225441 N52.1 will send to refill Carotid atherosclerosis 337990606 I65.29 set up with repeat screening Type 2 abhay betes mellitus without complication 680710772 E11.9 [facility] suggested going back on the injectable (but will get them the name of the pharmacy) Chronic ki dney disease stage 2 971680474 N18.2 stable, improving values [id number] [facility] [address] [facility],[place] [address] 07/30/2024 10:42:46 07/30/2024 15:06:46 Essential hypertension 47917967 I10 BP stable at home Chronic ki dney disease stage 2 308695645 N18.2 stable, improving values Hyperlipidemia 63776522 E78.2 working on his diethis cholestero l was good; LDL a little elevated but easily correctabl e with diet changes Type 2 abhay betes mellitus without complication 883231867 E11.9 stable Depression screening 171 586013 Z13.31 negative Arterial r etinal branch occlusion 18526998 H34.232 set up with MRA Palpitations 40154628 R0 0.2 will switch echo to [facility] with the holter and MRA neck and brain [id number] [facility] [address] [facility],[place] [address] 09/03/2024 10:06:54 09/03/2024 15:31:12 Type 2 diabetes mellitus 45391787 E11.9 needs updated standing orders Hyperlipidemia 36068644 E78.2 working on his diethis cholestero l was good; LDL a little elevated but easily correctabl e with diet changes Gout 58226136 M10.071 stable Chronic ki dney disease stage 2 665352889 N18.2 stable, improving values Fracture of rib 49066107 S22.31XA will fu in a few weeks for recheck XR Health Concerns Section Related Observation LastModified by Organization Detai ls LastModified Time None Recorded Concern Status LastModified by Organization Details LastModified Time None Recorded Advance Directives Directive None Recorded Payers Encounter Date Sequence Insurance Name Policy Number Policy Strickland Covered Member ID Strickland Member ID Guarantor Name 09/23/2023 1 [employer] (POS) [id number] Ganesh Rae [id number] Ganesh Rae 12/21/2023 1 [employer] (POS) [id number] Ganesh Rae [id number] Ganesh Rae 04/11/2024 1 [employer] (POS) [id number] Ganesh Rae [id number] Ganesh Rae 07/30/2024 1 [employer] (POS) [id number] Ganesh Rae [id number] Ganesh Rae 09/03/2024 1 [employer] (POS) [id number] Ganesh Rae [id number] Ganesh Rae Notes Date Note Type Note Provider Name a nd Address Organization Details Recorded Time 4 text/html f/u medication check the patient reports that he was in the ER in the beginning of the monthhaving chest pain, tightness, sob the patient reports that he had a full cardiac work up without any abnormalities the patient did have a 230/110 BP per patientdid come down while being monitored in the ERthe patient reports that he has not had an episode since patient thinks that he may have had a severe allergic reaction to the pollen down in the [facility] where he was will monitor PIA JJ [address] [place] [address], [address], [facility] 09/23/2023 12:18:16 4 text/html f/u 3 mos check the patient reports that he is doing okayhis currently has cancer, is stressful for the patient depression: The patient denies little pleasure in activities they find enjoyable, feeling depressed, difficulties sleeping, feeling tired or having little energy, change in appetite, feeling guilty, overwhelmed or unmotivated. The patient denies suicidal ideation, thoughts of hurting themselves or others. Their mood is appropriate, they show good judgement and clear understanding of the conversation. They are orientated to time, place and person. They are not expressing any concerning thoughts or actions that would need further investigation and treatment for mental health gout: stable with the allopurinol HTN: today in the office the patient BP is 126/76 L sittingthe patient is doing well on the BP medication with no side effects and no adjustment of their medications needed today at the appointmentwell-contro lled on medicationdenies chest pain, sob, ankle swelling, orthopnea, palpitations HLD: stable T2DM: up to 6.9%, [facility] still having occasional elbow and jaw pain, probably related to pinched nerve in neckhad stress test and cath and it was all normal otherwise PIA JJ [address] [place], [address], [facility] 12/21/2023 09:53:35 4 text/html 3 mos f/u carotid screening: hasn't had one in years, recommended f/u for another screening primary erectile dysfunction: stable one medication T2DM: Patient presents today for follow-up for Type 2 Diabetes Recent lab showed an A1c of 6.7% The patient has been compliant with medicationsThe complications patient is experiencing are n/aThe patient has current concerns about related to their diabetes diagnosis medication (misses his second dose, his a1c looks great) probably due to better diet (careful because his has cancer)The patient has been compliant with lifestyle changes including dietary changes, exercise and healthy habits Discussion about feet reveals normal examDiscussion about eyes reveal normal exam Treatment plan going forward is to go down to one metformin, recheck 3 mos PIA JJ [address] [place], [address], [facility] 04/11/2024 09:56:46 5 text/html 3 mos T2DM: Patient presents today for follow-up for Type 2 Diabetes Recent lab showed an A1c of 6.9% The patient has been compliant with medicationsThe complications patient is experiencing areThe patient has current concerns about related to their diabetes diagnosisThe patient has been compliant with lifestyle changes including dietary changes, exercise and healthy habits Discussion about feet revealsDiscussion about eyes reveal Treatment plan going forward is HTN: today in the office the patient BP isthe patient is doing well on the BP medication with no side effects and no adjustment of their medications needed today at the appointmentwell-contro lled on medicationdenies chest pain, sob, ankle swelling, orthopnea, palpitations HLD: stable with recent check CKD: stable with recent check needs eval for new clot on the L optic artery, hx of retina artery occlusion as wellrecommended f/u with MRAreordered echo, added holter PIA JJ [address] [place], [address], [facility] 07/30/2024 11:10:03 5 text/html f/u ER, rib fx The patient is participating in this appointment via telemedicine communication with a phone call/video calling service ([employer])The patient consents to use of these platforms in place of an in-person appointment due to either sick symptoms the patient is presenting with or current office closure due to COVID exposure in order to keep our office staff and patients safe the patient feel on his counter trying to fix his ceiling lightslipped, landed on the counter and then hit his head into the base boardCT head was negative, CT chest showed rib fracture given oxycodone and d/c home stableneeds refill, will need fu XR in a few weeks to recheck for healing incidental finding of pulm HTN, [facility] will [facility] to get in touch with PIA JJ [address] [facility], [place], [address], [facility] 09/03/2024 15:27:32
--- OUTSIDE RECORDS SUMMARY | 2024-09-27 15:59 | XMS_ITS | Encounter Summary ---
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 This section includes the names of all active insurance providers for the patient. Insurance Provider Type of Coverage Plan Name Start of Policy Coverage End of Policy Coverage Group Number Member ID Insurance Provider's Telephone Number Policy Strickland's Name Patient's Relationship to Policy Strickland MEDICARE (WNR) MEDICARE (M) PART A Jan 28, 2013 PART A [id number] [phone] GUSAN,FRANDY PHEN PATIENT MEDICARE (WNR) MEDICARE (M) PART B Jan 28, 2013 PART B [id number] [phone] GUSAN,FRANDY PHEN PATIENT MEDICARE (WNR) MEDICARE (M) PART A Jan 28, 2013 PART A [id number] GUSAN,FRANDY PHEN PATIENT MEDICARE (WNR) MEDICARE (M) PART B Jan 28, 2013 PART B [id number] GUSAN,FRANDY PHEN PATIENT OPTUM RX PRESCRIPT ION RX May 30, 2022 THPRX [id number] GUSAN,FRANDY PHEN PATIENT [facility] May 30, 2017 [facility] [id number] [place] GAUTHIER GALDINO PATIENT [facility] ROLAND Diaz May 30, 2017 [id number] FRANDY REID PATIENT Selected Encounter This section includes the information on record at [place] for the Encounter. Date/Time Encounter Type Encounter Description Reason Pro vider Source Sep 26, 2024 10:19 AM Outpatient Encounter TELEPHONE PRIMARY CARE IHE Encounter Template Text not used by [place] Plan of Treatment: Future Appointments (+ 6 months) and Future Tests (+/- 45 days) The Plan of Treatment section includes future care activities for the patient [facility] [place] [facility] This section includes future appointments and future orders which are active, pending or scheduled. Future Appointments This section includes appointments that were scheduled to occur 6 months from the date of the Encounter, up to a maximum of 20 appointments. The data comes from all [facility]. Appointment Date/Time Appointment Type Appointme nt Facility Name October 03, 2024 02:30 PM AMBULATORY - MEDICINE [facility] October 25, 2024 01:00 PM AMBULATORY - REHAB MEDICIN E [facility] Mar 21, 2025 11:30 AM AMBULATORY - MEDICINE [facility] Active, Pending, and Scheduled Orders This section includes a listing of several types of active, pending, and scheduled orders, including clinic medications orders, diagnostic test orders, procedure orders and consult orders; where the start date of the order is 45 days before the date of the Encounter or 45 days after the date of theEncounter. The data comes from all [facility]. Test Date/Time Test Type Test Details Facility Name Sep 21, 2024 12:00 AM Laboratory - Chemistry Order URIC ACID BLOOD (SST-SERUM) [facility] Sep 21, 2024 12:00 AM Laboratory - Chemistry Order HEPATITIS B SURFACE ANTIBODY (HBsAb)-WH BLOOD (SST-SERUM) [facility] Sep 21, 2024 12:00 AM Laboratory - Chemistry Order HEPATITIS C ANTIBODY (HCV)-ARC BLOOD (MARBLED-TOP SERUM) [facility] Sep 21, 2024 12:00 AM Laboratory - Chemistry Order BASIC METABOLIC PANEL (fasting) BLOOD (SST-SERUM) [facility] Sep 21, 2024 12:00 AM Laboratory - Chemistry Order LIVER FUNCTION BLOOD (SST-SERUM) [facility] Sep 21, 2024 12:00 AM Laboratory - Chemistry Order LIPID PANEL FASTING BLOOD (SST-SERUM) [facility] Sep 21, 2024 12:00 AM Laboratory - Chemistry Order HEMOGLOBIN A1C PANEL BLOOD (LAV-BLOOD) [facility] Sep 21, 2024 12:00 AM Laboratory - Chemistry Order MICROALBUMIN CREATININE RATIO PANEL URINE (RANDOM) [facility] Sep 21, 2024 12:00 AM Laboratory - Chemistry Order URINALYSIS URINE [facility] Sep 21, 2024 12:00 AM Laboratory - Chemistry Order HIV 1&2 Ag/Ab SCREEN BLOOD (SST-SERUM) [facility] Sep 21, 2024 12:00 AM Laboratory - Chemistry Order HEPATITIS A ANTIBODY (IGG) BLOOD (SST-SERUM) [facility] Social History: Smoking Status (Most current) and Tobacco Use (All prior to encounter date) This section includes the most current, and the historical, smoking and tobacco- related health factors from the [place] facility where the Encounter took place. Current Smoking Status This section includes the most current smoking, or tobacco-related health factor, from the [place] facility where the Encounter took place. Date/Time Current Smoking Status Comment Don sainiy Nov 08, 2023 02:00 PM VA-TOBACCO FORMER USER [facility] Tobacco Use History This section includes a history of the smoking, or tobacco-related health factors, that were collected on or before the date of the Encounter. The data comes from the [place] facility where the Encounter took place. Date/Time Smoking Status/Tobacco Use Comment F jory Nov 08, 2023 02:00 PM VA-TOBACCO QUIT 15 YRS OR MORE [facility] October 15, 2022 03:30 PM VA-TOBACCO FORMER USER [facility] October 15, 2022 03:30 PM VA-TOBACCO QUIT 15 YRS OR MORE [facility] [place] [facility] Sep 24, 2021 10:00 AM VA-TOBACCO FORMER USER [facility] [place] [facility] Sep 24, 2021 10:00 AM VA-TOBACCO QUIT 15 YRS OR MORE [facility] [place] [facility] Jul 10, 2020 11:00 AM VA-TOBACCO FORMER USER [facility] [place] [facility] Jul 10, 2020 11:00 AM VA-TOBACCO QUIT 15 YRS OR MORE [facility] Encounter Notes: All associated encounter notes This section contains the clinical notes associated to the Encounter. Date/Time Encounter Note(s) Provider Source Sep 26, 2024 10:19 AM PHARMACY TELEPHONE ENCOUNTER NOTE: LOCAL TITLE: TELEPHONE NOTE/PHARMACY STANDARD TITLE: PHARMACY TELEPHONE ENCOUNTER NOTE DATE OF NOTE: SEP 26, 2024@10:19 ENTRY DATE: SEP 26, 2024@10:19:23 AUTHOR: ISMAEL PERKINS EXP COSIGNER: URGENCY: STATUS: COMPLETED Pt called to cancel and reshedule apt as he has to do something with his . Please cancel [facility] PHARM PACT 3 09/26/24 @1130 Please reschedule for the following [facility] PHARM PACT 3 10/03/24 @1430 X 60 MINS /jatin/ ISMAEL PERKINS PHARMD,BCPS CLINICAL PHARMACY PRACTITIONER Signed: 09/26/2024 10:20 [facility] PERKINS [facility]
--- OUTSIDE RECORDS SUMMARY | 2024-09-27 15:59 | XMS_ITS | Encounter Summary ---
Author Name [facility] [place] [facility] [place] [facility] [place] Address [address] [place] [id number] Care Team Providers Care Hospital Scientist Name Role Phone SALLY VELIZ Primary Care [...] PART A Jan 28, 2013 PART A [id number] [phone] GUSAN,FRANDY PHEN PATIENT MEDICARE (WNR) MEDICARE (M) PART B Jan 28, 2013 PART B [id number] [phone] GUSAN,FRANDY PHEN PATIENT MEDICARE (WNR) MEDICARE (M) PART A Jan 28, 2013 PART A [id number] GUSAN,FRANDY PHEN PATIENT MEDICARE (WNR) MEDICARE (M) PART B Jan 28, 2013 PART B [id number] GUSAN,FRANDY PHEN PATIENT OPTUM RX PRESCRIPT ION RX May 30, 2022 THPRX [id number] [phone] GUSAN,FRANDY PHEN PATIENT [facility] May 30, 2017 [facility] [id number] [phone] FRANDY REID PATIENT [facility] ROLAND Diaz May 30, 2017 [facility] [id number] FRANDY REID PATIENT Selected Encounter This section includes the information on record at [place] for the Encounter. Date/Time Encounter Type Encounter Description Reason Provider Source Sep 26, 2024 04:00 PM HEARING AID FITTING/CHECKIN G AUDIOLOGY ICD-10-CM H90.3 Sensorineural hearing loss, bilateral BONCZEK,HARPREET N L IHE Encounter Template Text not used by [place] Assessments - Encounter Diagnoses This section includes the primary and secondary diagnoses documented for the Encounter. Date/Time Primary/Secondary Diagnosis Diagnosis Name Provider Source Sep 26, 2024 04:54 PM PRIMARY Sensorineural hearing loss, bilateral BONCZEK,HARPREET N L [place] [facility] [place] [facility] Sep 26, 2024 04:54 PM SECONDARY Tinnitus, bilateral BONCZEK,HARPREET N L [place] [facility] [place] [facility] Plan of Treatment: Future Appointments (+ 6 months) and Future Tests (+/- 45 days) The Plan of Treatment section includes future care activities for the patient [facility] [place] [facility]. This section includes future appointments and future orders which are active, pending or scheduled. Future Appointments This section includes appointments that were scheduled to occur 6 months from the date of the Encounter, up to a maximum of 20 appointments. The data comes from all [place] treatment facilities. Appointment Date/Time Appointment Type Appointme nt Facility Name October 03, 2024 02:30 PM [facility] [place] [facility] October 25, 2024 01:00 PM AMBULATORY - REHAB MEDICIN E [place] [facility] [facility] Mar 21, 2025 11:30 AM [facility] Active, Pending, and Scheduled Orders This section includes a listing of several types of active, pending, and scheduled orders, including clinic medications orders, diagnostic test orders, procedure orders and consult orders; where the start date of the order is 45 days before the date of the Encounter or 45 days after the date of theEncounter. The data comes from all [place] treatment facilities. Test Date/Time Test Type Test Details Facility Name Sep 21, 2024 12:00 AM Laboratory - Chemistry Order URIC ACID BLOOD (SST-SERUM) [facility] Sep 21, 2024 12:00 AM Laboratory - Chemistry Order HEPATITIS B SURFACE ANTIBODY (HBsAb)-WH BLOOD (SST-SERUM) [facility] Sep 21, 2024 12:00 AM Laboratory - Chemistry Order HEPATITIS C ANTIBODY (HCV)-ARC BLOOD (MARBLED-TOP SERUM) [facility] Sep 21, 2024 12:00 AM Laboratory - Chemistry Order BASIC METABOLIC PANEL (fasting) [facility]LOOD ([facility]UM) [facility] Sep 21, 2024 12:00 AM Laboratory - Chemistry Order LIVER FUNCTION BLOOD (SST-SERUM) [facility] Sep 21, 2024 12:00 AM Laboratory - Chemistry Order LIPID PANEL FASTING BLOOD (SST-SERUM) [facility] Sep 21, 2024 12:00 AM Laboratory - Chemistry Order HEMOGLOBIN A1C PANEL BLOOD (LAV-BLOOD) [facility] Sep 21, 2024 12:00 AM Laboratory - Chemistry Order MICROALBUMIN CREATININE RATIO PANEL URINE (RANDOM) [facility] Sep 21, 2024 12:00 AM Laboratory - Chemistry Order URINALYSIS URINE [facility] Sep 21, 2024 12:00 AM Laboratory - Chemistry Order HIV 1&2 Ag/Ab SCREEN BLOOD (SST-SERUM) [facility] Sep 21, 2024 12:00 AM Laboratory - Chemistry Order HEPATITIS A ANTIBODY (IGG) BLOOD (SST-SERUM) [facility] Social History: Smoking Status (Most current) and Tobacco Use (All prior to encounter date) This section includes the most current, and the historical, smoking and tobacco- related health factors from the [place] facility where the Encounter took place. Current Smoking Status This section includes the most current smoking, or tobacco-related health factor, from the [place] facility where the Encounter took place. Date/Time Current Smoking Status Comment Facil [facility] Nov 08, 2023 02:00 PM [facility] Tobacco Use History This section includes a history of the smoking, or tobacco-related health factors, that were collected on or before the date of the Encounter. The data comes from the [place] facility where the Encounter took place. Date/Time Smoking Status/Tobacco Use Comment F acility Nov 08, 2023 02:00 PM VA-TOBACCO QUIT 15 YRS OR MORE [place] [facility] [place] [facility] October 15, 2022 03:30 PM VA-TOBACCO FORMER USER [place] [facility] [place] [facility] October 15, 2022 03:30 PM VA-TOBACCO QUIT 15 YRS OR MORE [place] [facility] [place] [facility] Sep 24, 2021 10:00 AM VA-TOBACCO FORMER USER [place] [facility] [place] [facility] Sep 24, 2021 10:00 AM VA-TOBACCO QUIT 15 YRS OR MORE [place] [facility] [place] [facility] Jul 10, 2020 11:00 AM VA-TOBACCO FORMER USER [place] [facility] [place] [facility] Jul 10, 2020 11:00 AM VA-TOBACCO QUIT 15 YRS OR MORE [facility] Encounter Notes: All associated encounter notes This section contains the clinical notes associated to the Encounter. Date/Time Encounter Note(s) Provider Source Sep 26, 2024 04:15 PM AUDIOLOGY E & M NO TE: [facility] TITLE: AUDIOLOGY CLINIC STANDARD TITLE: AUDIOLOGY E & M NOTE DATE OF NOTE: SEP 26, 2024@16:15 ENTRY DATE: SEP 26, 2024@16:15:43 AUTHOR: AMPARO HOOVER COSIGNER: URGENCY: STATUS: COMPLETED was seen September 26, 2024 for a hearing re-evaluation. His last hearing evaluation was on 09/29/21. reports his has noticed a decline in his hearing. He was issued bilateral GN Resound Linx Quattro MIH hearing aids on 11/10/21. reports he lost his right hearing aid, for which a replacement has been ordered and received by the clinic. He reports he finds his hearing aids to be tinny sounding and admits he does not wear them much. reports longstanding, constant buzzing tinnitus in both ears. He denies vertigo. Medical history includes: Active problems - Computerized Problem List is the source for the followin. Hearing Loss ([facility] [place] [id number]) 2. Exposure to potentially hazardous substance ([facility] [id number]) 3. Occlusion of right branch retinal artery 4. History of total hip arthroplasty 5. Nephropathy 6. Diabetes Mellitus Type 2 ([facility] [place] [id number]) 7. LFT Abnormal 8. Essential hypertension 9. Obesity 10. Impotence of organic origin 11. Gout * Results of today's testing are as follow: Otoscopy was WNL bilaterally. Pure tone audiometric testing under headphones revealed a normal sloping to severe, sensorineural hearing loss bilaterally. Word recognition scores were fair for the right ear (76%), and good for the left ear (92%) with recorded speech presented at 80 dB HL (contralateral masking). Normal tympanograms obtained bilaterally. Slight decline noted in right ear thresholds compared to his last evaluation. Slight asymmetries present, with poorer thresholds in the right ear from 4034-5269 Hz. Right ear thresholds were confirmed with insert earphone. Tate was counseled re: today's test results. He is eligible for new hearing aids given the age of his current devices. New hearing aid styles and options were discussed. [place] agreed to try binaural Oticon Intent 1 mini [facility] hearing aids. He denies having a pacemaker. Ear impressions were taken without incident for both ears given 's verbal consent. Hearing aids will be ordered. RTC placed for hearing aid fitting appointment in 4 weeks. Will alert [facility] to please contact to schedule a fitting appointment. Please also add to the recall list for an updated hearing test in 1 year to monitor asymmetry. 's Resound [facility] hearing aids were connected in RAFY and user settings were restored. The aids are now paired. Plan: [facility] to schedule a hearing aid fitting appointment in 4 weeks. Please also add to the recall list for an updated hearing test in 1 year. /jatin/ Kareem Garcia CCC-A Brand Ambassador Promotional Model Signed: 09/26/2024 17:10 Receipt Acknowledged By: 09/27/2024 08:41 /jatin/ TONO VICTOR [employer] FINAL DRESSING CUTTER AMPARO HOOVER [facility]
--- OUTSIDE RECORDS SUMMARY | 2024-09-27 15:59 | XMS_ITS | Encounter Summary ---
Author Name [facility] [place] Address [address] [place] [id number] Care Team Providers Care Engraver Hand [employer] Metals Name Role Phone SALLY VELIZ Primary Care [...] PART A Jan 28, 2013 PART A [id number] [phone] GUSAN,FRANDY PHEN PATIENT MEDICARE (WNR) MEDICARE (M) PART B Jan 28, 2013 PART B [id number] [phone] GUSAN,FRANDY PHEN PATIENT MEDICARE (WNR) MEDICARE (M) PART A Jan 28, 2013 PART A [id number] GUSAN,FRANDY PHEN PATIENT MEDICARE (WNR) MEDICARE (M) PART B Jan 28, 2013 PART B [id number] GUSAN,FRANDY PHEN PATIENT [facility] RX PRESCRIPT ION RX May 30, 2022 THPRX [id number] GUSAN,FRANDY PHEN PATIENT [facility] May 30, 2017 [facility] [id number] FRANDY RAE PATIENT [facility] PLAN ROLAND Diaz May 30, 2017 [facility] [id number] FRANDY RAE PATIENT Selected Encounter This section includes the information on record at [place] for the Encounter. Date/Time Encounter Type Encounter Description Reason Provider Source Jul 27, 2024 08:30 AM OFFICE O/P EST MOD 30 MIN OPTOMETRY ICD-10-CM H34.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, left eye MERHAR,ALEX B IHE Encounter Template Text not used by VA Assessments - Encounter Diagnoses This section includes the primary and secondary diagnoses documented for the Encounter. Date/Time Primary/Secondary Diagnosis Diagnosis Name Provider Source Jul 27, 2024 10:25 AM PRIMARY Partial retinal artery occlusion, left eye MERHAR,ALEX B [facility] Jul 27, 2024 10:25 AM SECONDARY Age-related nuclear cataract, bilateral MERHAR,ALEX B [facility] Jul 27, 2024 10:25 AM SECONDARY Myopia, bilateral MERHAR,ALEX B [facility] Jul 27, 2024 10:25 AM SECONDARY Ocular hypertension, bilateral MERHAR,ALEX B [facility] Jul 27, 2024 10:25 AM SECONDARY Posterior subcapsular polar age-related cataract, right eye MERHAR,ALEX B [facility] Jul 27, 2024 10:25 AM SECONDARY Retinal artery branch occlusion, right eye MERHAR,ALEX B [facility] Jul 27, 2024 10:25 AM SECONDARY Type 2 diab with mild nonp rtnop without mclr edema, l eye MERHAR,ALEX B [facility] Plan of Treatment: Future Appointments (+ 6 months) and Future Tests (+/- 45 days) The Plan of Treatment section includes future care activities for the patient from all VA treatmentfacilities. This section includes future appointments and future orders which are active, pending or scheduled. Future Appointments This section includes appointments that were scheduled to occur 6 months from the date of the Encounter, up to a maximum of 20 appointments. The data comes from all [place] treatment facilities. Appointment Date/Time Appointment Type Appointme nt Facility Name Sep 21, 2024 08:00 AM AMBULATORY - MEDICINE [facility] Sep 26, 2024 09:30 AM AMBULATORY - MEDICINE [facility] Sep 26, 2024 04:00 PM AMBULATORY - REHAB MEDICIN E [facility] October 03, 2024 02:30 PM AMBULATORY - MEDICINE [facility] October 25, 2024 01:00 PM AMBULATORY - REHAB MEDICIN E [facility] Social History: Smoking Status (Most current) and Tobacco Use (All prior to encounter date) This section includes the most current, and the historical, smoking and tobacco- related health factors from the [place] facility where the Encounter took place. Current Smoking Status This section includes the most current smoking, or tobacco-related health factor, from the [place] facility where the Encounter took place. Date/Time Current Smoking Status Comment Don ity Nov 08, 2023 02:00 PM VA-TOBACCO FORMER USER [place] [facility] Tobacco Use History This section includes a history of the smoking, or tobacco-related health factors, that were collected on or before the date of the Encounter. The data comes from the [place] facility where the Encounter took place. Date/Time Smoking Status/Tobacco Use Comment F acenzo Nov 08, 2023 02:00 PM VA-TOBACCO QUIT 15 YRS OR MORE [facility] October 15, 2022 03:30 PM VA-TOBACCO FORMER USER [facility] October 15, 2022 03:30 PM VA-TOBACCO QUIT 15 YRS OR MORE [facility] Sep 24, 2021 10:00 AM VA-TOBACCO FORMER USER [facility] Sep 24, 2021 10:00 AM VA-TOBACCO QUIT 15 YRS OR MORE [facility] Jul 10, 2020 11:00 AM VA-TOBACCO FORMER USER [facility] Jul 10, 2020 11:00 AM VA-TOBACCO QUIT 15 YRS OR MORE [facility] Encounter Notes: All associated encounter notes This section contains the clinical notes associated to the Encounter. Date/Time Encounter Note(s) Provider Source Jul 27, 2024 08:54 AM OPTOMETRY NOTE: LOCAL TITLE: OPTOMETRY NOTE STANDARD TITLE: OPTOMETRY NOTE DATE OF NOTE: JUL 27, 2024@08:54 ENTRY DATE: JUL 27, 2024@08:54:30 AUTHOR: ALEX DOCKERY EXP COSIGNER: URGENCY: STATUS: COMPLETED OPTOMETRY NOTE Has ADDENDA please assist in ordering duplicate glasses: RX INFORMATION OD -0.75 -0.50 X90 Add:0.00 Pzm:0.00 Dir: Prz2:0.00 Dir2: OS -0.75 -0.50 X90 Add:0.00 Pzm:0.00 Dir: Prz2:0.00 Dir2: FITTING INFORMATION FPD: NPD: [place]:R:32 L:33 SEG HT:R: L: Tint:None Shade:None VA Billable Items FRAME: BLAIR MEEKSQUE BROWN [id number] Right Lens: POLY SINGLE VISION PHOTOCHROMATIC MCCLURE 1.586 POLY Left Lens: POLY SINGLE VISION PHOTOCHROMATIC MCCLURE 1.586 POLY KLEAR ANTI-REFLECTIVE COATING /jatin/ ALEX DOCKERY OD Sand Car Worker Signed: 07/27/2024 10:35 Receipt Acknowledged By: 07/30/2024 12:48 /leobardo THOMAS OPTOMETRY TECH 07/30/2024 ADDENDUM STATUS: COMPLETED Optometry Health Package Designer ordered patient 1 pair(s) of SV eyeglasses on 07/27/2024 as directed by provider. OPT HT entered consult(s) for order on behalf of provider. /leobardo THOMAS OPTOMETRY TECH Signed: 07/30/2024 12:50 ALEX [facility]OCKERY [facility] Jul 27, 2024 08:36 AM OPTOMETRY NOTE: LOCAL TITLE: OPTOMETRY NOTE STANDARD TITLE: OPTOMETRY NOTE DATE OF NOTE: JUL 27, 2024@08:36 ENTRY DATE: JUL 27, 2024@08:36:26 AUTHOR: MERHAR,ALEX B EXP COSIGNER: URGENCY: STATUS: COMPLETED OPTOMETRY NOTE Has ADDENDA 74 WHITE MALE DECLINED TO ANSWER Last eye exam: 07/14/23 Reason for Visit/CC: patient here for a comprehensive eye exam. Right eye is still bad, left eye seems ok but he wonders if the prescription needs to be updated because he is having more issues with depth perception OHx: 1. History of retinal artery occlusion OD 2. Type II diabetes with mild non-proliferative diabetic retinopathy OS, no retinopathy OD or macular edema OU 3. Combined Cataracts OU 4. Borderline ocular hypertension OU 5. Refractive error with presbyopia OU (-) Pain: (-) ROLDAN: (-) Diplopia: (-) Flashes: (-) Floaters: (-) Amaurosis Fugax/Tia's: (-) Eye Injury: (-) Eye Surgery: (-) TBI (+) FOHx: brother-glaucoma MHx: Code Description Z77.29 Exposure to potentially hazardous substance ([facility] [id number]) H34.231 Occlusion of right branch retinal artery ([facility] [id number]) R69. History of total hip arthroplasty ([facility] [id number]) N28.9 Nephropathy ([facility] [id number]) E11.9 Diabetes Mellitus Type 2 ([facility] [id number]) 794.8 LFT Abnormal (ICD-9-CM 794.8) 401.9 Essential hypertension (ICD-9-CM 401.9) 278.00 Obesity (ICD-9-CM 278.00) 607.84 Impotence of organic origin (ICD-9-CM 607.84) 274.9 Gout (ICD-9-CM 274.9) Other: SYSTEMIC MEDICATIONS/OCULAR MEDICATIONS: Active and Recently Outpatient Medications (excluding Supplies): Active Non-VA Medications Status = 1) Non-VA ALLOPURINOL 300MG TAB 300MG BY MOUTH ONCE DAILY ACTIVE 2) Non-VA CLONIDINE HCL 0.1MG TAB 0.1MG BY MOUTH TWICE DAILY ACTIVE 3) Non-VA DOCUSATE NA 100MG CAP 100MG BY MOUTH ONCE DAILY ACTIVE 4) Non-VA FUROSEMIDE 20MG TAB 20MG BY MOUTH ONCE DAILY ACTIVE 5) Non-VA GABAPENTIN 300MG CAP 300MG BY MOUTH THREE TIMES A DAY ACTIVE Indication: FOR NERVE PAIN 6) Non-VA IBUPROFEN TAB 200MG BY MOUTH FOUR TIMES A DAY ACTIVE 7) Non-VA LOVASTATIN 40MG TAB 40MG BY MOUTH ONCE DAILY ACTIVE 8) Non-VA METFORMIN HCL 500MG TAB 500MG BY MOUTH ONCE DAILY ACTIVE 9) Non-VA METOPROLOL SUCCINATE 100MG SA TAB 100MG BY MOUTH ONCE ACTIVE DAILY 10) Non-VA SILDENAFIL CITRATE 100MG TAB 100MG BY MOUTH ONCE ACTIVE DAILY 11) Non-VA TRAMADOL HCL 50MG TAB 50MG BY MOUTH ONCE DAILY ACTIVE NEEDED ALLERGIES: Patient has answered NKA LAST BP: 136/70 (11/08/2023 13:57) PERTINENT LABS: No data for HEMOGLOBIN A1C Current Rx with last BCVA: OD -0.75-0.50 x 090 20/200 (NI) OS -0.75 -0.50 x 090 20/20 Add: +2.25 DVA ( )sc ( x )cc OD 20/400-1 OS 20/20-2 Pupils: PERRL (-)APD EOM: Full all meridia OU, (-) pain/diplopia Confrontation Visual Kan: Full all meridia OU Subjective: OD NI OS -0.75 -0.50 x 090 20/20 Add: +2.25 SLE: Lids/Lashes: clear OU Conjunctiva: white and quiet OU Corneas: clear OU Iris: flat and clear OU (-)TID/NVI OU Anterior Chamber: deep and quiet OU Angles: open OU Lens: 1-2+ NS OU, 3+ central diffuse PSC OD, 1 vacuole OS (-)PXF OU TAP @ 8:52am Espinoza OD 16 mm Hg OS 18 mm Hg Previous pachymetry: OD 527 OS 531 Dilating Drops: 1 gtt 1% Tropicamide OU, 2.5% phenylephrine OU (Pt. ed. on side effects) Vitreous: Syneresis OU C/D (Size and Rim Description) OD 0.40 mild pallor inferior OS 0.40 pink & healthy, elongated fibrin plaque in artery off superior nasal rim Macula OD flat and clear OS flat and clear A/V: attenuated artery inferior off disc OD, moderate arterial attenuation OU Posterior Pole: clear OU Periphery: Flat and intact (-)holes, tears, detachments 360 OU chorioretinal scar superior temp OS 1 blot superior nasal OS Assessment/Plan: 1. Partial retinal artery occlusion OS - newly noted fibrin-type plaque OS, h/o branch retinal artery occlusion OD with longstanding vision loss (at least 10 years). Pt ed on finding. Letter given to patient to take to his community PCP Dr. Eyad Venegas on Tuesday regarding additional vascular testing if indicated (see addendum). Will monitor in 6 months. 2. Type II diabetes with mild non-proliferative diabetic retinopathy OS, no retinopathy OD or macular edema OU. Isolated retinal hemorrhage OS. Pt ed on findings, monitor. 3. Dense posterior subcapsular cataract OD - per pt vision seems the same although he had previously been 20/60 and now 20/400 - this was demonstrated to patient. Will continue to monitor 4. nuclear sclerosis cataracts OU, not visually significant. Monitor 5. borderline ocular hypertension OU - IOP is normotensive today OU. RNFL OCT is stable - thin inferior OD likely due to prior BRAO, OS WNL. Continue to monitor 6. myopia OU - order new DVO RTC 6 months or earlier PRN total time: 36 minutes Patient Education: Diabetes: Patient was educated regarding diabetes and related ocular complications including retinopathy and cataract formation as well as other related systemic complications. The importance of good blood sugar control, blood sugar testing as recommended by their PCP and the importance of timely follow up were all emphasized. patient offered and declined printed medication list Medication Reconciliation: Outpatient: Has the patient been taking medications as documented in the EMLR? YES: The patient has been taking medications as documented in the EMLR. Essential Medication List for Review used to complete this medication reconciliation. INCLUDED IN THIS LIST: Alphabetical list of active outpatient prescriptions dispensed from this VA (local) and dispensed from another VA or DoD facility (remote) as well as inpatient orders (local, pending and active), local clinic medications, locally documented non-VA medications, and local prescriptions that have or been discontinued in the past 90 days. - All changes in medications, including all non-VA/Herbal/OTC medications were entered into CPRS. - If there were any medications the patient should no longer take, they were discontinued. - The patient/caregiver was instructed to update this list, discard old lists, and take this list to the next appointment, whether with a VA or non-VA provider. JLV Link Data on this list may not be complete. Please check JLV. Allergies/ADRs (Tool #5) FACILITY ALLERGY/ADR -------- No Remote Allergy/ADR Data available for this patient [place] [facility] No Known [facility]ies [facility] INCLUDED IN THIS LIST: Alphabetical list of active outpatient prescriptions dispensed from this [place] (local) and dispensed from another [place] or [facility] facility (remote) as well as inpatient orders (local pending and active), local clinic medications, locally documented non-VA medications, and local prescriptions that have or been discontinued in the past 90 days. Non-VA Meds Last Documented On: October 15, 2022 NOTE The display of VA prescriptions dispensed from another VA or DoD facility (remote) is limited to active outpatient prescription entries matched to National Drug File at the originating site and may not include some items such as investigational drugs, compounds, etc. NOT INCLUDED IN THIS LIST: Medications self-entered by the patient into personal health records (i.e. 7write) are NOT included in this list. Non-VA medications documented outside this [place], remote inpatient orders (regardless of status) and remote clinic medications are NOT included in this list. The patient and provider must always discuss medications the patient is taking, regardless of where the medication was dispensed or obtained. Non-VA ALLOPURINOL 300MG TAB TAKE ONE TABLET BY MOUTH ONCE DAILY Non-VA CLONIDINE HCL 0.1MG TAB TAKE ONE TABLET BY MOUTH TWICE DAILY Non-VA DOCUSATE NA 100MG CAP TAKE 1 CAPSULE BY MOUTH ONCE DAILY Medication prescribed by Non-VA provider. Non-VA FUROSEMIDE 20MG TAB TAKE ONE TABLET BY MOUTH ONCE DAILY Non-VA GABAPENTIN 300MG CAP TAKE 1 CAPSULE BY MOUTH THREE TIMES A DAY Indication: FOR NERVE PAIN Non-VA IBUPROFEN TAB TAKE 200MG BY MOUTH FOUR TIMES A DAY Medication prescribed by Non-VA provider. Non-VA LOVASTATIN 40MG TAB TAKE ONE TABLET BY MOUTH ONCE DAILY Non-VA METFORMIN HCL 500MG TAB TAKE ONE TABLET BY MOUTH ONCE DAILY Non-VA METOPROLOL SUCCINATE 100MG SA TAB TAKE ONE TABLET BY MOUTH ONCE DAILY Medication prescribed by Non-VA provider. Non-VA SILDENAFIL CITRATE 100MG TAB TAKE ONE TABLET BY MOUTH ONCE DAILY Medication prescribed by Non-VA provider. Non-VA TRAMADOL HCL 50MG TAB TAKE ONE TABLET BY MOUTH ONCE DAILY NEEDED SUPPLIES /leobardo DOCKERY OD Sand Car Worker Signed: 07/27/2024 10:25 07/27/2024 ADDENDUM STATUS: COMPLETED Re: Ganesh Rae ( 1950) To Whom it May Concern, Mr. Rae was seen for a routine ocular health evaluation today. He has a history of a branch retinal artery occlusion in his right eye several years ago, mild non-proliferative diabetic retinopathy left eye, borderline ocular hypertension bilaterally, and cataracts bilaterally. Today, best corrected visual acuity was 20/400 right eye, 20/20 left eye. Intraocular pressure was 16 right eye, 18 left eye. He has a dense posterior subcapsular cataract right eye and mild nuclear sclerosis cataracts bilaterally. Dilated fundus exam showed an elongated fibrin-type embolus in an artery off his left optic disc superior nasally, as well as one blot hemorrhage left eye. Given his history of prior retinal artery occlusion right eye that resulted in vision loss (20/60 acuity prior to developing the cataract), I am concerned about the new embolus in the left eye. Fibrin-type plaques are more often due to conditions such as a-fib vs. carotid artery stenosis. I wanted to bring this to your attention in case you feel additional vascular testing is indicated. I will be monitoring him in 6 months. Please contact me with any questions and thank you for the care you provide to this . Sincerely, Alex Dockery OD, FAAO Staff Sand Car Worker [facility] [phone] /es/ ALEX DOCKERY OD Sand Car Worker Signed: 07/27/2024 10:34 ALXE DOCKERY [facility]
--- OUTSIDE RECORDS SUMMARY | 2024-09-27 15:59 | XMS_ITS | Continuity of Care Document ---
Author Organization [facility]. If a dditional information is needed, contact Health Information Management at [phone] Address [address] [place] [address] Phone Care Team Providers Care Mobile Crane Operator Name Role Phone Unavailable Unavailable Unavailable Unavailable Unavailable Unavailable Unavailable Unavailable Unavailable Unavailable Unavailable Unavailable Unavailable Unavailable Unavailable Unavailable Unavailable Unavailable Problems Chest pain Onset:15-Aug-2023 Marya Felipe R3 DO Laceration of hand Onset:19-Aug-2015 Neo eHrzog PA-C Allergies and Adverse Reactions No Known Drug Allergies(Willi rgy) Onset: 19-Aug-2015 Social History Smoking Status Ex-smoker Recorded: 15-Aug-2023 Never smoked tobacco Recorded: 19-Aug-2015
--- OUTSIDE RECORDS SUMMARY | 2024-09-27 15:59 | XMS_ITS | Encounter Summary ---
Author Name [facility] [place] [facility] [place] [facility] [place] Address [address] [place] [id number] Care Team Providers Care Tree Specialist Name Role Phone OLMAN CHI Primary Care Provider Unavail able Insurance Providers: [...] PART A Jan 28, 2013 PART A [id number] [phone] GUSAN,FRANDY PHEN PATIENT MEDICARE (WNR) MEDICARE (M) PART B Jan 28, 2013 PART B [id number] [phone] GUSAN,FRANDY PHEN PATIENT MEDICARE (WNR) MEDICARE (M) PART A Jan 28, 2013 PART A [id number] GUSAN,FRANDY PHEN PATIENT MEDICARE (WNR) MEDICARE (M) PART B Jan 28, 2013 PART B [id number] GUSAN,FRANDY PHEN PATIENT [facility] PRESCRIPT ION RX May 30, 2022 THPRX [id number] GUSAN,FRANDY PHEN PATIENT [facility] May 30[facility] 2017 [facility] [[email or web address] [id number] FRANDY REID PATIENT [facility] ROLAND Diaz May 30, 2017 [facility] [id number] FRANDY REID PATIENT Selected Encounter This section includes the information on record at [place] for the Encounter. Date/Time Encounter Type Encounter Description Reason Provider Source Sep 21, 2024 08:00 AM OFFICE O/P EST LOW 20 MIN PRIMARY CARE/MEDICINE ICD-10-CM H91.8X3 Other specified hearing loss, bilateral VANWAGNER,WILL JAQUI F IHE Encounter Template Text not used by [place] Assessments - Encounter Diagnoses This section includes the primary and secondary diagnoses documented for the Encounter. Date/Time Primary/Secondary Diagnosis Diagnosis Name Provider Source Sep 21, 2024 08:33 AM PRIMARY Other specified hearing loss, bilateral VANWAGNER,WILL JAQUI F [facility] Plan of Treatment: Future Appointments (+ 6 months) and Future Tests (+/- 45 days) The Plan of Treatment section includes future care activities for the patient [facility]. This section includes future appointments and future orders which are active, pending or scheduled. Future Appointments This section includes appointments that were scheduled to occur 6 months from the date of the Encounter, up to a maximum of 20 appointments. The data comes from all [place] treatment facilities. Appointment Date/Time Appointment Type Appointme nt Facility Name Sep 26, 2024 09:30 AM AMBULATORY - [facility]INE [facility] Sep 26, 2024 04:00 PM [facility] [place] [facility] October 03, 2024 02:30 PM [facility] [place] [facility] October 25, 2024 01:00 PM [facility] [place] [facility] Mar 21, 2025 11:30 AM [facility] Active, Pending, and Scheduled Orders This section includes a listing of several types of active, pending, and scheduled orders, including clinic medications orders, diagnostic test orders, procedure orders and consult orders; where the start date of the order is 45 days before the date of the Encounter or 45 days after the date of theEncounter. The data comes from all [place] treatment facilities. Test Date/Time Test Type Test Details Facility Name Sep 21, 2024 12:00 AM Laboratory - Chemistry Order URIC ACID BLOOD (SST-SERUM) [facility] [place] [facility] Sep 21, 2024 12:00 AM Laboratory - Chemistry Order HEPATITIS B SURFACE ANTIBODY (HBsAb)-WH BLOOD (SST-SERUM) [facility] Sep 21, 2024 12:00 AM Laboratory - Chemistry Order HEPATITIS C ANTIBODY (HCV)-ARC BLOOD (MARBLED-TOP SERUM) [facility] Sep 21, 2024 12:00 AM Laboratory - Chemistry Order BASIC METABOLIC PANEL (fasting) BLOOD (SST-SERUM) [facility] Sep 21, 2024 12:00 AM Laboratory - Chemistry Order LIVER FUNCTION BLOOD (SST-SERUM) [facility] Sep 21, 2024 12:00 AM Laboratory - Chemistry Order LIPID PANEL FASTING BLOOD (SST-SERUM) [facility] Sep 21, 2024 12:00 AM Laboratory - Chemistry Order HEMOGLOBIN A1C PANEL BLOOD (LAV-BLOOD) [facility] Sep 21, 2024 12:00 AM Laboratory - Chemistry Order MICROALBUMIN CREATININE RATIO PANEL URINE (RANDOM) [facility] Sep 21, 2024 12:00 AM Laboratory - Chemistry Order [facility] Sep 21, 2024 12:00 AM Laboratory - Chemistry Order HIV 1&2 Ag/Ab SCREEN BLOOD (SST-SERUM) [facility] Sep 21, 2024 12:00 AM Laboratory - Chemistry Order HEPATITIS A ANTIBODY (IGG) BLOOD (SST-SERUM) [facility] Vital Signs: All taken on the encounter date This section contains inpatient and outpatient Vital Signs collected on the date of the Encounter. Date/Time Temperature Pulse Blood Pressure Respiratory Rate SP02 Pain Height Weight Body Mass Index Source Sep 21, 2024 08:03 AM 142/78 [facility] [place] [facility] Sep 21, 2024 07:58 AM 97.8 75 16 97 6 72 219.1 30 [place] [facility] [place] [facility] Social History: Smoking Status (Most current) and Tobacco Use (All prior to encounter date) This section includes the most current, and the historical, smoking and tobacco- related health factors from the [place] facility where the Encounter took place. Current Smoking Status This section includes the most current smoking, or tobacco-related health factor, from the [place] facility where the Encounter took place. Date/Time Current Smoking Status Comment Facil [facility] Nov 08, 2023 02:00 PM VA-TOBACCO [facility] Tobacco Use History This section includes a history of the smoking, or tobacco-related health factors, that were collected on or before the date of the Encounter. The data comes from the [place] facility where the Encounter took place. Date/Time Smoking Status/Tobacco Use Comment F jory Nov 08, 2023 02:00 PM VA-TOBACCO QUIT 15 YRS OR MORE [facility] [place] [facility] October 15, 2022 03:30 PM VA-TOBACCO FORMER USER [facility] [place] [facility] October 15, 2022 03:30 PM VA-TOBACCO QUIT 15 YRS OR MORE [facility] [place] [facility] Sep 24, 2021 10:00 AM VA-TOBACCO FORMER USER [facility] [place] [facility] Sep 24, 2021 10:00 AM VA-TOBACCO QUIT 15 YRS OR MORE [facility] [place] [facility] Jul 10, 2020 11:00 AM VA-TOBACCO FORMER USER [facility] [place] [facility] Jul 10, 2020 11:00 AM VA-TOBACCO QUIT 15 YRS OR MORE [facility] [place] [facility] Encounter Notes: All associated encounter notes This section contains the clinical notes associated to the Encounter. Date/Time Encounter Note(s) Provider Source Sep 21, 2024 09:11 AM ADDENDUM: LOCAL TITLE: Addendum STANDARD TITLE: ADDENDUM DATE OF NOTE: SEP 21, 2024@09:11:06 ENTRY DATE: SEP 21, 2024@09:11:06 AUTHOR: OLMAN CHI COSIGNER: URGENCY: STATUS: COMPLETED I will offer his recent ED d/c papers to our CPP. They contain labs that will be useful to her, althought not meet all of our needs. I will update OUR labs orders as well, although he declines labs here for now. I tasked him to BRING....ONE YEAR of outside lab results. /jatin/ Olman Chi PA-C STAFF PHYSICIAN SOCIAL WORK SPECIALIST Signed: 09/21/2024 09:12 Receipt Acknowledged By: 09/21/2024 15:11 /jatin/ ISMAEL PERKINS, PHARMD,BCPS CLINICAL PHARMACY PRACTITIONER ====== --- Original Document --- 09/21/24 PIA NOTE: CC/HPI/A/P: 74 year old MALE here in follow-up for; hearing loss, sees audio next week. optom here as well. DM, sees our CPP next week. Declines labs here. I ask him to bring ONE YEAR of lab result when he sees her or cancel appt. Dr Merino.... htn, repeat by me, auto finds . he promises to call DR Andrea's office today for med adjustment. We add bp check with pact rn next week. Review of systems: Patient reports no changes from [place], in meds or any admissions. He fell off a ladder recently, broke a right rib, 3 weeks ago. Brings ED instructions. He reports MRI pending cervical for radic and CT for something.... pending as well. Active problems - Computerized Problem List is the source for the followin. 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 History of total hip arthroplasty left 4. Nephropathy 5. Diabetes Mellitus Type 2 (SCT 88133365) 6. LFT Abnormal 7. Essential hypertension 8. Obesity 9. Impotence of organic origin 10. Gout * SERVICE CONNECTED % - 60 VA and Non VA meds were reconciled with the patient who left with a corrected copy. See medication page for details. Active and Recently Outpatient Medications (excluding Supplies): Active Non-VA Medications Status ====== 1) Non-VA ALLOPURINOL 300MG TAB 300MG BY [...] 50MG BY MOUTH ONCE DAILY ACTIVE NEEDED 97.8 F [36.6 C] (09/21/2024 07:58) 75 (09/21/2024 07:58) 16 (09/21/2024 07:58) 142/78 (09/21/2024 08:03) 6 (09/21/2024 07:58) 72 in [182.9 cm] (09/21/2024 07:58) 219.1 lb [99.38 kg] (09/21/2024 07:58) BMI: 29.8 Neuro: Alert and oriented times three, grossly nonfocal, nasolabial folds intact. /jatin/ Olman Chi PA-C STAFF PHYSICIAN SOCIAL WORK SPECIALIST Signed: 09/21/2024 08:33 OLMAN CHI [facility] Sep 21, 2024 08:27 AM PHYSICIAN SOCIAL WORK SPECIALIST NOTE: LOCAL TITLE: PIA NOTE STANDARD TITLE: PHYSICIAN SOCIAL WORK SPECIALIST NOTE DATE OF NOTE: SEP 21, 2024@08:27 ENTRY DATE: SEP 21, 2024@08:27:59 AUTHOR: OLMAN CHI COSIGNER: URGENCY: STATUS: COMPLETED PIA NOTE Has ADDENDA CC/HPI/A/P: 74 year old MALE here in follow-up for; hearing loss, sees audio next week. optom here as well. DM, sees our CPP next week. Declines labs here. I ask him to bring ONE YEAR of lab result when he sees her or cancel appt. Dr Merino.... htn, repeat by me, auto finds . he promises to call DR Andrea's office today for med adjustment. We add bp check with pact rn next week. Review of systems: Patient reports no changes from [place], in meds or any admissions. He fell off a ladder recently, broke a right rib, 3 weeks ago. Brings ED instructions. He reports MRI pending cervical for radic and CT for something.... pending as well. Active problems - Computerized Problem List is the source for the followin. 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 History of total hip arthroplasty left 4. Nephropathy 5. Diabetes Mellitus Type 2 ([facility] [id number]) 6. LFT Abnormal 7. Essential hypertension 8. Obesity 9. Impotence of organic origin 10. Gout * SERVICE CONNECTED % - 60 VA and Non VA meds were reconciled with the patient who left with a corrected copy. See medication page for details. Active and Recently Outpatient Medications (excluding Supplies): Active Non-VA Medications Status ====== 1) Non-VA ALLOPURINOL 300MG TAB 300MG BY [...] 50MG BY MOUTH ONCE DAILY ACTIVE NEEDED 97.8 F [36.6 C] (09/21/2024 07:58) 75 (09/21/2024 07:58) 16 (09/21/2024 07:58) 142/78 (09/21/2024 08:03) 6 (09/21/2024 07:58) 72 in [182.9 cm] (09/21/2024 07:58) 219.1 lb [99.38 kg] (09/21/2024 07:58) BMI: 29.8 Neuro: Alert and oriented times three, grossly nonfocal, nasolabial folds intact. /jatin/ Olman Chi PA-C STAFF PHYSICIAN SOCIAL WORK SPECIALIST Signed: 09/21/2024 08:33 09/21/2024 ADDENDUM STATUS: COMPLETED I will offer his recent ED d/c papers to our CPP. They contain labs that will be useful to her, althought not meet all of our needs. I will update OUR labs orders as well, although he declines labs here for now. I tasked him to BRING....ONE YEAR of outside lab results. /es/ Olman Chi PA-C STAFF PHYSICIAN SOCIAL WORK SPECIALIST Signed: 09/21/2024 09:12 Receipt Acknowledged By: * AWAITING SIGNATURE * ISMAEL PERKINS WILLIAM [facility] [place] [facility] Sep 21, 2024 08:04 AM PREVENTIVE MEDICINE NURSING NOTE: LOCAL TITLE: CLINICAL REMINDERS/NURSING STANDARD TITLE: PREVENTIVE MEDICINE NURSING NOTE DATE OF NOTE: SEP 21, 2024@08:04 ENTRY DATE: SEP 21, 2024@08:04:39 AUTHOR: ELIZABETH HERNANDEZ EXP COSIGNER: URGENCY: STATUS: COMPLETED Falls & Incontinence Screen: Falls Screen: 3. At least one fall with injury requiring treatment (in ED or clinic visit). Incontinence Screen No incontinence. PAVE Foot Check: Patient indicates foot exam (including monofilament test for sensation) was performed in the past year in the private sector: Date: July 14, 2024 Result: Normal Sexual Orientation: The patient thinks of their sexual orientation as: Straight or Heterosexual Advance Directive Screen MH AD: Patient has an up-to-date Advance Directive at an outside, non-va facility and was asked to forward a copy to his/her clinician. Comment: up to date HIV Screening: HIV Testing was done outside of this facility: HIV test was negative. DATE: Month/Year March/2007 (Optional) Whole Health Documentation: What matters the most to you? What motivates you to be healthy? (MAP) Response: I want to live to 89 COVID-19 Immunization: Refused Moderna Monovalent COVID-19 vaccine Immunization: COVID-19 (MODERNA), MRNA, LNP-S, PF, 50 MCG/0.5 ML (AGES 12+ YEARS) Refusal Reason: PATIENT DECISION Patient refuses all immunization(s) in the COVID-19 group Date Documented: 09/21/24 08:11 /jatin/ ELIZABETH HERNANDEZ LPN LPN Signed: 09/21/2024 08:11 [facility]
--- OUTSIDE RECORDS SUMMARY | 2024-09-27 15:59 | XMS_ITS | Continuity of Care Document ---
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 It does not include entries that were removed or entered in error. Problem Status Onset Date Problem Type Date of Resolution Comments Source History of total hip arthroplasty Active 02/28/20 21 Condition Sep 24, 2021 Entered By: DEAN CROWELL Comment: left [facility] Diabetes Mellitus Type 2 ([facility] [id number]) Active Condition [facility] Essential hypertension Active Condition [facility] Exposure to potentially hazardous substance ([facility] [id number]) Active Condition Sep 06 Entered By: CHIARA WASHINGTON Comment: Entered automatically through [employer] Problem List documentation program [facility] Gout * (ICD-9-CM 274.9) Active Condition [facility] Hearing Loss (SCT [id number]) Active Condition [facility] 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 Condition [facility] LFT Abnormal Active Condition [facility]phropathy Active Condition [facility] Obesity Active Condition [facility] 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 [facility] Diagnosis: ICD-10-CM H90.3 Sensorineural hearing loss, bilateral Active Diagnosis [facility] Diagnosis: ICD-10-CM H91.8X3 Other specified hearing loss, bilateral Active Diagnosis [facility] Diagnosis: ICD-10-CM H40.053 Ocular hypertension, bilateral Active Diagnosis [facility] Diagnosis: ICD-10-CM H34.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, left eye Active Diagnosis [facility] Diagnosis: ICD-10-CM Z23 Encounter for immunization Active Diagnosis [facility] Diagnosis: ICD-10-CM E11.9 Type 2 diabetes mellitus without complications Active Diagnosis [facility] Diagnosis: ICD-10-CM Z46.0 Encounter for fit/adjst of spectacles and contact lenses Active Diagnosis [facility] Diagnosis: ICD-10-CM 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 Medication Details Route Status Patient Instructions Prescription Expires Prescription Number Last Dispense Date Ordering Provider Order Date Order Qty Source ALLOPURINOL 300MG TAB TAKE ONE TABLET BY MOUTH ONCE DAILY ORAL ACTIVE SALLY VELIZ [facility] CLONIDINE HCL 0.1MG TAB TAKE ONE TABLET BY MOUTH TWICE DAILY ORAL ACTIVE SALLY VELIZ [address] [facility] DOCUSATE NA 100MG CAP TAKE 1 CAPSULE BY MOUTH ONCE DAILY ORAL ACTIVE RA CARIE CROWELL [address] [facility] FUROSEMIDE 20MG TAB TAKE ONE TABLET BY MOUTH ONCE DAILY ORAL ACTIVE SALLY VELIZ [address] [facility] GABAPENTIN 300MG CAP TAKE 1 CAPSULE BY MOUTH THREE TIMES A DAY ORAL ACTIVE SALLY VELIZ [address] [facility] IBUPROFEN TAB TAKE 200MG BY MOUTH FOUR TIMES A DAY ORAL ACTIVE RA CARIE CROWELL [address] [facility] LOVASTATIN 40MG TAB TAKE ONE TABLET BY MOUTH ONCE DAILY ORAL ACTIVE SALLY VELIZ 2020 [facility] METFORMIN HCL 500MG TAB TAKE ONE TABLET BY MOUTH ONCE DAILY ORAL ACTIVE SALLY VELIZ 2020 [facility] METOPROLOL SUCCINATE 100MG TAB,SA TAKE ONE TABLET BY MOUTH ONCE DAILY ORAL ACTIVE RA CARIE CROWELL 2021 [facility] SILDENAFIL CITRATE 100MG TAB TAKE ONE TABLET BY MOUTH ONCE DAILY ORAL ACTIVE RA CARIE CROWELL 2021 [facility] TRAMADOL HCL 50MG TAB TAKE ONE TABLET BY MOUTH ONCE DAILY NEEDED ORAL ACTIVE SALLY VELIZ 2022 [facility] Immunizations Combined list of available immunizations from the Department of Defense and [facility] Affairs facilities. 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 Status Comments Source INFLUENZA, HIGH-DOSE, TRIVALENT, PF 2023 RUDOLPH CUI LEFT DELTO ID [id number] 135 complet ed [facility] COVID-19 (MODERNA), MRNA, LNP-S, PF, 50 MCG/0.5 ML (AGES 12+ YEARS) 1 2023 SLIME WILHELM LEFT DELTO ID [id number] 312 complet ed [facility] INFLUENZA, HIGH-DOSE, QUADRIVALENT 2022 NABEEL AVENDANO LEFT DELTO ID [id number] 197 complet ed [facility] INFLUENZA VACCINE, QUADRIVALENT, ADJUVANTED 2020 205 complet ed [facility] COVID-19 (PFIZER), MRNA, LNP-S, PF, 30 MCG/0.3 ML DOSE 2 2020 208 complet ed PFR; [id number]; 1 LATANYA RINCON COVID-19 (PFIZER), MRNA, LNP-S, PF, 30 MCG/0.3 ML DOSE 1 2020 208 complet ed PFR; [id number]; 1 [place] INFLUENZA, UNSPECIFIED FORMULATION 2019 88 complet ed [facility] influenza virus vaccine, split virus (incl. purified surface antigen)-reti red CODE 1 2006 Unknown, Provider [id number] [employer] ([employer]) complet ed influenza virus vaccine, split virus (incl. purified surface antigen)- retired CODE DoD influenza virus vaccine, split virus (incl. purified surface antigen)-reti red CODE 1 2005 Unknown, Provider [id number] Other (OT) complet ed influenza virus vaccine, split virus (incl. purified surface antigen)- retired CODE DoD typhoid vaccine, parenteral, other than acetone-kille d, dried 1 2005 Unknown, Provider [id number] Sanofi Pasteur ([facility]) complet ed typhoid vaccine, parentera l, other than acetone-k illed, dried DoD influenza virus vaccine, split virus (incl. purified surface antigen)-reti red CODE 1 2004 Unknown, Provider [id number] 15 Sanofi Pasteur ([facility]) complet ed influenza virus vaccine, split virus (incl. purified surface antigen)- retired CODE [facility] tetanus and diphtheria toxoids, adsorbed, preservative free, for adult use (2 Lf of tetanus toxoid and 2 Lf of diphtheria toxoid) 1 2004 Unknown, Provider [id number] Sanofi Pasteur ([facility]) complet ed tetanus and diphtheri a toxoids, adsorbed, preservat abel free, for adult use (2 Lf of tetanus toxoid and 2 Lf of diphtheri a toxoid) [facility] influenza virus vaccine, whole virus 1 2004 Unknown, Provider [id number] 16 Margarita ([facility]) complet ed influenza virus vaccine, whole virus DoD typhoid vaccine, parenteral, other than acetone-kille d, dried 1 2003 Unknown, Provider [id number] 41 Sanofi Pasteur ([facility]) complet ed typhoid vaccine, parentera l, other than acetone-k illed, dried DoD influenza virus vaccine, whole virus 1 2002 Unknown, Provider [id number] 16 Sanofi Pasteur ([facility]) complet ed influenza virus vaccine, whole virus DoD influenza virus vaccine, whole virus 1 2001 Unknown, Provider [id number] complet ed influenza virus vaccine, whole virus DoD influenza virus vaccine, whole virus 1 2000 Unknown, Provider [id number] [facility] ([facility]) complet ed influenza virus vaccine, whole virus DoD meningococcal polysaccharid e vaccine (MPSV4) 1 2000 Unknown, Provider [id number] [employer] (CON) complet ed meningoco ccal polysacch aride vaccine (MPSV4) DoD typhoid vaccine, parenteral, other than acetone-kille d, dried 1 2000 Unknown, Provider [id number] [facility] Pasteur ([facility]) complet ed typhoid vaccine, parentera l, other than acetone-k illed, dried DoD influenza virus vaccine, whole virus 3 2000 Unknown, Provider [id number] 16 Derek (CON) complet ed influenza virus vaccine, whole virus DoD influenza virus vaccine, whole virus 1 1998 Unknown, Provider [id number] 16 Margarita ([facility]) complet ed influenza virus vaccine, whole virus DoD hepatitis A vaccine, adult dosage 2 1998 Unknown, Provider [id number] Merck (MSD) complet ed hepatitis A vaccine, adult dosage DoD measles, mumps and rubella virus vaccine 2 1997 Unknown, Provider [id number] Paredes (AB) complet ed measles, mumps and rubella virus vaccine DoD influenza virus vaccine, whole virus 2 1997 Unknown, Provider [id number] 16 Derek (CON) complet ed influenza virus vaccine, whole virus DoD hepatitis A vaccine, adult dosage 1 1997 Unknown, Provider [id number] Merck (MSD) complet ed hepatitis A vaccine, adult dosage DoD influenza virus vaccine, whole virus 1 1996 Unknown, Provider 16 () complet ed influenza virus vaccine, whole virus DoD tetanus and diphtheria toxoids, adsorbed, preservative free, for adult use (2 Lf of tetanus toxoid and 2 Lf of diphtheria toxoid) 1 1993 Unknown, Provider 09 () complet ed tetanus and diphtheri a toxoids, adsorbed, preservat abel free, for adult use (2 Lf of tetanus toxoid and 2 Lf of diphtheri a toxoid) DoD yellow fever vaccine 1 1993 Unknown, Provider 37 () complet ed yellow fever vaccine DoD typhoid vaccine, parenteral, acetone-kille d, dried ([place].S. ) 3 1993 Unknown, Provider 53 () complet ed typhoid vaccine, parentera l, acetone-k illed, dried ([place]. ) DoD trivalent poliovirus vaccine, live, oral 1 1967 Unknown, Provider 02 () complet ed trivalent polioviru s vaccine, live, oral DoD cholera vaccine, unspecified formulation 1 1967 Unknown, Provider 26 () complet ed cholera vaccine, unspecifi ed formulati on DoD Vital Signs Combined list of inpatient and outpatient Vital Signs from Department of Defense and Veterans Affairs, ranging from 12 months to all on record, depending upon the facility. Vital Sign Value Date Comments Source PULSE OXIMETRY 97 09/21/2024 07:58:59 [facility] WEIGHT 219.1 09/21/2024 07:58:59 [facility] BMI 30 kg/m2 09/21/2024 07:58:59 [facility] PAIN 6 09/21/2024 07:58:59 [facility] HEIGHT 72 09/21/2024 07:58:59 [facility] TEMPERATURE 97.8 09/21/2024 07:58:59 [facility] PULSE 75 09/21/2024 07:58:59 [facility] RESPIRATION 16 09/21/2024 07:58:59 [facility] SYSTOLIC BLOOD PRESSURE 136 11/08/19 24 13:57:17 [facility] DIASTOLIC BLOOD PRESSURE 70 024 13:57:17 [facility] PULSE OXIMETRY 97 11/08/2023 13:57:17 [facility] WEIGHT 220 11/08/2023 13:57:17 [facility] BMI 31 kg/m2 11/08/2023 13:57:17 [facility] PAIN 4 11/08/2023 13:57:17 [facility] TEMPERATURE 97.8 11/08/2023 13:57:17 [facility] PULSE 65 11/08/2023 13:57:17 [facility] RESPIRATION 16 11/08/2023 13:57:17 [facility] Encounters Combined list of: 1) Encounters from Department of Veterans Affairs facilities going backup to the last 18 months, not all [place] inpatient encounters are included; 2) Encounters from the Department of [facility] facilities going backup to 280 months. Location Location Details Encounter Type Encounter Number Reason For Visit Attending Provider ADM Date DC Date Status Disposition Source [facility] [place]PH [place] PT 1/ [id number] Diagnos is: ICD-10- CM H34.231 Retinal artery branch occlusi on, right eye [facility] 07[facility]14 [facility] CMPTR OPHTH IMG OPTIC NERVE [id number] Diagnos is: ICD-10- CM H40.053 Ocular hyperte nsion, bilater al [facility] 07/14 [facility] FIT SPECTACLES MONOFOCAL [id number] Diagnos is: ICD-10- CM Z46.0 Encount er for fit/adj st of spectac les and contact lenses [facility] 07/15 [facility] Outpatient [facility]counter [id number] 08/10 [facility] Out[facility] Encounter [id number] 08/14 [facility] OFFICE O/P EST LOW 20 MIN [id number] Diagnos is: ICD-10- CM E11.9 Type 2 diabete s mellitu s without complic ations SALLY VELIZ 11/07 [facility] Out[facility] Encounter [id number] 12/19 [facility] Out[facility] Encounter [id number] 12/19 [facility] [place] ADMIN [id number] Diagnos is: ICD-10- CM Z23 Encount er for immuniz ation GINO,CHR ISTIE L 02/09 [facility] Out[facility] Encounter [id number] 02/17 [facility] Out[facility]counter [id number] 03/08 [facility] Out[facility]counter [id number] 03/14 [facility] Out[facility] Encounter [id number] 04/09 [facility] Out[facility] Encounter [id number] 04/19 [facility] Out[facility] Encounter [id number] 05/09 [facility] Out[facility]counter [id number] 06/05 [facility] Out[facility] Encounter [id number] 06/21 [facility] Out[facility]counter [id number] 06/27 [facility] Out[facility] Encounter [id number] 07/14 [facility] OFFICE O/P EST MOD 30 MIN [id number] Diagnos is: ICD-10- CM H34.212 Partial retinal artery occlusi on, left eye [facility] H B 07/27 [facility] [place]TRZD [place] [id number] Diagnos is: ICD-10- CM H40.053 Ocular hyperte nsion, bilater al [facility]ITA H B 07/27 [facility] Outpatient Encounter [id number] 08/01 [facility] Outpatient Encounter [id number] 08/28 [facility] Out[facility]counter [id number] 09/21 [facility] OFFICE O/P EST LOW 20 MIN [id number] Diagnos is: ICD-10- CM H91.8X3 Other specifi ed hearing loss, SALLY Collazo 09/21 [facility] Outpatient Encounter [id number] 09/26 [facility] HEARING AID FITTING/CH ECKING [id number] Diagnos is: ICD-10- CM H90.3 Sensori neural hearing loss, JESUS Catalan 09/26 [place] [facility] Social History Combined list of available smoking, tobacco, and other social history from Department of Defense and Veterans Affairs facilities. Social History Type Response Date Comment Sourc e Tobacco smoking status NHIS [facility] FORMER USER 11/08/2023 [place] [facility] History of tobacco use VA-[facility] QUIT 15 YRS OR MORE 11/08/2023 [facility] History of tobacco use [facility] FORMER USER 10[facility]15/2022 [facility] History of tobacco use VA-[facility]BAC[facility] FORMER USER 09[facility]24/2021 [facility] History of tobacco use [facility] FORMER US[facility] 07/10/2020 [place] [facility] [place] This section is an empty social history section. [facility] Plan of Care List of future care activities from Department of Veterans Affairs facilities. Additional future care activities may be listed in the Assessment and Plan section. Date/Time Care Activity Care Activity Detail Facili ty 10/03/2024 AMBULATORY - MEDICINE AMBULATORY - MEDICI [facility] [place] [facility]
--- OUTSIDE RECORDS SUMMARY | 2024-09-27 15:59 | XMS_ITS | Encounter Summary ---
Author Name [facility] [facility] [place] [facility] [place] [facility] [place] Address [address] [place] [id number] Care Team Providers Care Supervisor Publications Production Name Role Phone SALLY CHI Primary Care Provider Unavail able Insurance [...] Policy Strickland's Name Patient's Relationship to Policy [place] MEDICARE (WNR) MEDICARE (M) PART A Jan 28, 2013 PART A [id number] [phone] GUSAN,FRANDY PHEN PATIENT MEDICARE (WNR) MEDICARE (M) PART B Jan 28, 2013 PART B [id number] [phone] GUSAN,FRANDY PHEN PATIENT MEDICARE (WNR) MEDICARE (M) PART A Jan 28, 2013 PART A [id number] GUSAN,FRANDY PHEN PATIENT MEDICARE (WNR) MEDICARE (M) PART B Jan 28, 2013 PART B [id number] GUSAN,FRANDY PHEN PATIENT [facility] PRESCRIPT ION RX May 30, 2022 THPRX [id number] GUSAN,FRANDY PHEN PATIENT [facility] May 30, 2017 [facility] [id number] FRANDY REID PATIENT [facility] ROLAND Diaz May 30, 2017 [facility] [id number] FRANDY REID PATIENT Selected Encounter This section includes the information on record at CT for the Encounter. Date/Time Encounter Type Encounter Description Reason Provider Source Nov 08, 2023 02:00 PM OFFICE O/P EST LOW 20 MIN PRIMARY CARE/MEDICINE ICD-10-CM E11.9 Type 2 diabetes mellitus without complications [facility] Encounter Template Text not used by CT Assessments - Encounter Diagnoses This section includes the primary and secondary diagnoses documented for the Encounter. Date/Time Primary/Secondary Diagnosis Diagnosis Name Provider Source Nov 08, 2023 02:47 PM PRIMARY Type 2 diabetes mellitus without complications [facility] Nov 08, 2023 02:47 PM SECONDARY Encounter for immunization SLIME WILHELM [facility] Plan of Treatment: Future Appointments (+ 6 months) and Future Tests (+/- 45 days) The Plan of Treatment section includes future care activities for the patient from all CT treatmentfacilities. This section includes future appointments and future orders which are active, pending or scheduled. Active, Pending, and Scheduled Orders This section includes a listing of several types of active, pending, and scheduled orders, including clinic medications orders, diagnostic test orders, procedure orders and consult orders; where the start date of the order is 45 days before the date of the Encounter or 45 days after the date of theEncounter. The data comes from all CT treatment facilities. Test Date/Time Test Type Test Details Facility Name Nov 08, 2023 12:00 AM Laboratory - Chemistry Order URIC ACID BLOOD (SST-SERUM) [facility] Nov 08, 2023 12:00 AM Laboratory - Chemistry Order HEPATITIS B SURFACE ANTIBODY (HBsAb)-WH BLOOD (SST-SERUM) [facility] Nov 08, 2023 12:00 AM Laboratory - Chemistry Order HEPATITIS C ANTIBODY (HCV)-ARC BLOOD (MARBLED-TOP SERUM) [facility] Nov 08, 2023 12:00 AM Laboratory - Chemistry Order BASIC METABOLIC PANEL (fasting) BLOOD (SST-SERUM) [facility] Nov 08, 2023 12:00 AM Laboratory - Chemistry Order LIVER FUNCTION BLOOD (SST-SERUM) [facility] Nov 08, 2023 12:00 AM Laboratory - Chemistry Order LIPID PANEL FASTING BLOOD (SST-SERUM) [facility] Nov 08, 2023 12:00 AM Laboratory - Chemistry Order HEMOGLOBIN A1C PANEL BLOOD (LAV-BLOOD) [facility] Nov 08, 2023 12:00 AM Laboratory - Chemistry Order MICROALBUMIN CREATININE RATIO PANEL URINE (RANDOM) [facility] Nov 08, 2023 12:00 AM Laboratory - Chemistry Order URINALYSIS URINE [facility] Nov 08, 2023 12:00 AM Laboratory - Chemistry Order HIV 1&2 Ag/Ab SCREEN BLOOD (SST-SERUM) [facility] Nov 08, 2023 12:00 AM Laboratory - Chemistry Order HEPATITIS A ANTIBODY (IGG) BLOOD (SST-SERUM) [facility] Vital Signs: All taken on the encounter date This section contains inpatient and outpatient Vital Signs collected on the date of the Encounter. Date/Time Temperature Pulse Blood Pressure Respiratory Rate SP02 Pain Height Weight Body Mass Index Source Nov 08, 2023 01:57 PM 97.8 65 136/70 16 97 4 220 31 [facility] Immunizations: All administered on the encounter date This section contains immunizations associated to the Encounter. Immunization Series Date Issued Administered By Site Reaction Lot Number [id number] Code Drug Rubber Tubing Backer Comment(s) Source COVID-19 (MODERNA), MRNA, LNP-S, PF, 50 MCG/0.5 ML (AGES 12+ YEARS) 1 Nov 08, 2023 SLIME WILHELM E LEFT DELTO ID [id number] [employer] ADMINISTERE D AT CT, [facility] Social History: Smoking Status (Most current) and Tobacco Use (All prior to encounter date) This section includes the most current, and the historical, smoking and tobacco- related health factors from the CT facility where the Encounter took place. Current Smoking Status This section includes the most current smoking, or tobacco-related health factor, from the CT facility where the Encounter took place. Date/Time Current Smoking Status Comment Don oscar Nov 08, 2023 02:00 PM VA-TOBACCO FORMER USER [facility] Tobacco Use History This section includes a history of the smoking, or tobacco-related health factors, that were collected on or before the date of the Encounter. The data comes from the CT facility where the Encounter took place. Date/Time Smoking Status/Tobacco Use Comment F jory Nov 08, 2023 02:00 PM VA-TOBACCO QUIT [address] [facility] [place] [facility] October 15, 2022 03:30 PM VA-TOBACCO FORMER USER CT [facility] [place] [facility] October 15, 2022 03:30 PM VA-TOBACCO QUIT [address] [facility] [place] [facility] Sep 24, 2021 10:00 AM VA-TOBACCO FORMER USER CT [facility] [place] [facility] Sep 24, 2021 10:00 AM VA-TOBACCO QUIT [address] [facility] [place] [facility] Jul 10, 2020 11:00 AM VA-TOBACCO FORMER USER CT [facility] [place] [facility] Jul 10, 2020 11:00 AM VA-TOBACCO QUIT [address] [facility] [place] [facility] Encounter Notes: All associated encounter notes This section contains the clinical notes associated to the Encounter. Date/Time Encounter Note(s) Provider Source Nov 10, 2023 08:37 AM ADDENDUM: LOCAL TITLE: Addendum STANDARD TITLE: ADDENDUM DATE OF NOTE: NOV 10, 2023@08:37:26 ENTRY DATE: NOV 10, 2023@08:37:27 AUTHOR: ISMAEL PERKINS COSIGNER: URGENCY: STATUS: COMPLETED Spoke with pt he notes the reason metformin was stopped was bc he requested from community proivider to trial something else like Ozempic . He was prescribed trulicity d/t cost and dc'ed d/t cost. He was put back on meftormin and he notes he likely doesnt have kidney issues since the PA was going to increase dose of metformin. He will see office in December and get labs for us in January. He is willing to see CPP after labs. Will ask [facility] to please schedule patient for: [X] CWM/NO/PHARM/PACT 3 RTC order placed. Appointment Length: _60 minutes. 02/08/24 @0830 Thank you! /jatin/ ISMAEL PERKINS PHARMD,BCPS CLINICAL PHARMACY PRACTITIONER Signed: 11/10/2023 08:40 Receipt Acknowledged By: 11/10/2023 10:52 /jatin/ CECELIA MEHTA VERN --- Original Document --- 11/08/23 PA NOTE: CC/HPI/A/P: 73 year old MALE here in follow-up for; Hearing loss, amps here. He brings records of lab and CT/A from an ED in [place], [place]. He was seen there for a hypertensive crisis in mid July. They are nondiagnostic. DM, DR Venegas's PA put him on Trulcity for a few months, but due to cost (48$ a month) he stopped it and was put back on metformin. I think the metformin was held due to renal functions, not because of the Trulicity Review of systems: Patient reports no changes from [facility], in meds or any admissions. Active problems - Computerized Problem List is the source for the followin. 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 History of total hip arthroplasty left 4. Nephropathy 5. Diabetes Mellitus Type 2 (SCT [id number]) 6. LFT Abnormal 7. Essential hypertension 8. Obesity 9. Impotence of organic origin 10. Gout * SERVICE CONNECTED % - 60 VA and Non VA meds were reconciled with the patient who left with a corrected copy. See medication page for details. Active and Recently Outpatient Medications (excluding Supplies): Active Non-VA Medications Status 1) Non-VA ALLOPURINOL 300MG TAB 300MG BY MOUTH ONCE ACTIVE DAILY 2) Non-VA CLONIDINE HCL 0.1MG TAB 0.1MG BY MOUTH TWICE ACTIVE DAILY 3) Non-VA DOCUSATE NA 100MG CAP 100MG BY MOUTH ONCE ACTIVE DAILY 4) Non-VA FUROSEMIDE 20MG TAB 20MG BY MOUTH ONCE DAILY ACTIVE 5) Non-VA GABAPENTIN 300MG CAP 300MG BY MOUTH THREE ACTIVE TIMES A DAY 6) Non-VA IBUPROFEN TAB 200MG BY MOUTH FOUR TIMES A DAY ACTIVE 7) Non-VA LOVASTATIN 40MG TAB 40MG BY MOUTH ONCE DAILY ACTIVE 8) Non-VA METFORMIN HCL 500MG TAB 500MG BY MOUTH ONCE ACTIVE DAILY 9) Non-VA METOPROLOL SUCCINATE 100MG SA TAB 100MG BY ACTIVE MOUTH ONCE DAILY 10) Non-VA SILDENAFIL CITRATE 100MG TAB 100MG BY MOUTH ACTIVE ONCE DAILY 11) Non-VA TRAMADOL HCL 50MG TAB 50MG BY MOUTH ONCE DAILY ACTIVE NEEDED 97.8 F [36.6 C] (11/08/2023 13:57) 65 (11/08/2023 13:57) 16 (11/08/2023 13:57) 136/70 (11/08/2023 13:57) 4 (11/08/2023 13:57) 71 in [180.3 cm] (09/24/2021 10:02) 220 lb [99.79 kg] (11/08/2023 13:57) BMI: 30.7 Neuro: Alert and oriented times three, grossly nonfocal, nasolabial folds intact. Follow-up Pos Alcohol : Patient's AUDIT-C score was greater than or equal to 5; brief alcohol intervention is indicated. Shared concern that the patient may be drinking at unhealthy levels known to increase his/her risk of alcohol related health problems. Specifically the following were reviewed: High blood pressure, heart disease, liver disease, medication interactions The patient was advised/informed to drink within safe limits, which are no more than 2 drinks per day on average and no more than 4 drinks on any one day AND no more than 14 drinks per week. Will discuss again at next visit. Assess Statin Use - Lipids (CVD/DM): The patient is still taking the NON-VA statin medication as documented. Hemoglobin A1C: Order for HBA1C placed. Hepatitis C Testing: Patient has given verbal consent for HCV antibody testing. An HCV lab test has been ordered - see orders tab. HIV Screening: Patient has given verbal consent for HIV antibody testing, and the risks, benefits, and alternatives to HIV testing have been discussed. An order for an HIV Antibody test has been entered - see orders tab. 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 The has not already been diagnosed as having TBI during post 02/07 deployment. 1. The [place] experienced the following events during deployment: Patient denies experiencing any TBI related events during deployment. Negative Screen Hallie and Elisha, denies TBI. Dm, he will do lab tomorrow, have DR Venegas's office send us notes and shot records and will ask our CPP to review our chart, labs tomorrow, scanned outside ED notes from July (sent to [facility] today) and consider trulicity here. RHS Screen: RHS Screen Environmental Check Upon inquiry, the individual reports that the environment is safe to proceed. Informed Consent to Screen and Document The individual consents to proceed with screening. The individual consents to documentation of responses. PRIMARY SCREEN: In the past 12 months, how often did a current or former intimate partner (e.g., boyfriend, girlfriend, , , sexual partner): 1. Scream or curse at you Never 2. Insult or talk down to you Never 3. Threaten you with harm Never 4. Physically hurt you Never 5. Force or pressure you to have sexual contact against your will, or when you were unable to say no Never ?? The HITS tool (items 1-4 above) is [place] copyright protected by Juan Olea MD, and the user has full rights to use it throughout the CT system. PRIMARY SCREEN RESULT: The Primary Screen is NEGATIVE. The individual answered never to all forms of IPV above (i.e., answered never to all 5 items) The individual accepts education and/or resources: Other: EDUCATION: Other: /es/ Sally Chi PA-C STAFF PHYSICIAN [employer] M[employer] OPERATOR Signed: 11/08/2023 14:47 Receipt Acknowledged By: 11/10/2023 08:37 /jatin/ ISMAEL PERKINS, PHARMCrys,[facility] CLINICAL PHARMACY PRACTITIONER ISMAEL PERKINS CT [facility] [place] [facility] Nov 08, 2023 02:22 PM PHYSICIAN ROLLS MILL OPERATOR NOTE: LOCAL TITLE: PA NOTE STANDARD TITLE: PHYSICIAN ROLLS MILL OPERATOR NOTE DATE OF NOTE: NOV 08, 2023@14:22 ENTRY DATE: NOV 08, 2023@14:22:12 AUTHOR: SALLY CHI EXP COSIGNER: URGENCY: STATUS: COMPLETED PIA NOTE Has ADDENDA CC/HPI/A/P: 73 year old MALE here in follow-up for; Hearing loss, amps here. He brings records of lab and CT/A from an ED in [place], [place]. He was seen there for a hypertensive crisis in mid July. They are nondiagnostic. DM, DR Venegas's PA put him on Trulcity for a few months, but due to cost (48$ a month) he stopped it and was put back on metformin. I think the metformin was held due to renal functions, not because of the Trulicity Review of systems: Patient reports no changes from [facility], in meds or any admissions. Active problems - Computerized Problem List is the source for the followin. 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 History of total hip arthroplasty left 4. Nephropathy 5. Diabetes Mellitus Type 2 ([facility] [id number]) 6. LFT Abnormal 7. Essential hypertension 8. Obesity 9. Impotence of organic origin 10. Gout * SERVICE CONNECTED % - 60 VA and Non VA meds were reconciled with the patient who left with a corrected copy. See medication page for details. Active and Recently Outpatient Medications (excluding Supplies): Active Non-VA Medications Status 1) Non-VA ALLOPURINOL 300MG TAB 300MG BY MOUTH ONCE ACTIVE DAILY 2) Non-VA CLONIDINE HCL 0.1MG TAB 0.1MG BY MOUTH TWICE ACTIVE DAILY 3) Non-VA DOCUSATE NA 100MG CAP 100MG BY MOUTH ONCE ACTIVE DAILY 4) Non-VA FUROSEMIDE 20MG TAB 20MG BY MOUTH ONCE DAILY ACTIVE 5) Non-VA GABAPENTIN 300MG CAP 300MG BY MOUTH THREE ACTIVE TIMES A DAY 6) Non-VA IBUPROFEN TAB 200MG BY MOUTH FOUR TIMES A DAY ACTIVE 7) Non-VA LOVASTATIN 40MG TAB 40MG BY MOUTH ONCE DAILY ACTIVE 8) Non-VA METFORMIN HCL 500MG TAB 500MG BY MOUTH ONCE ACTIVE DAILY 9) Non-VA METOPROLOL SUCCINATE 100MG SA TAB 100MG BY ACTIVE MOUTH ONCE DAILY 10) Non-VA SILDENAFIL CITRATE 100MG TAB 100MG BY MOUTH ACTIVE ONCE DAILY 11) Non-VA TRAMADOL HCL 50MG TAB 50MG BY MOUTH ONCE DAILY ACTIVE NEEDED 97.8 F [36.6 C] (11/08/2023 13:57) 65 (11/08/2023 13:57) 16 (11/08/2023 13:57) 136/70 (11/08/2023 13:57) 4 (11/08/2023 13:57) 71 in [180.3 cm] (09/24/2021 10:02) 220 lb [99.79 kg] (11/08/2023 13:57) BMI: 30.7 Neuro: Alert and oriented times three, grossly nonfocal, nasolabial folds intact. Follow-up Pos Alcohol : Patient's AUDIT-C score was greater than or equal to 5; brief alcohol intervention is indicated. Shared concern that the patient may be drinking at unhealthy levels known to increase his/her risk of alcohol related health problems. Specifically the following were reviewed: High blood pressure, heart disease, liver disease, medication interactions The patient was advised/informed to drink within safe limits, which are no more than 2 drinks per day on average and no more than 4 drinks on any one day AND no more than 14 drinks per week. Will discuss again at next visit. Assess Statin Use - Lipids (CVD/DM): The patient is still taking the NON-VA statin medication as documented. Hemoglobin A1C: Order for HBA1C placed. Hepatitis C Testing: Patient has given verbal consent for HCV antibody testing. An HCV lab test has been ordered - see orders tab. HIV Screening: Patient has given verbal consent for HIV antibody testing, and the risks, benefits, and alternatives to HIV testing have been discussed. An order for an HIV Antibody test has been entered - see orders tab. TBI Screening: The [place] was deployed in support of post-02/07 operations. The has not already been diagnosed as having TBI during post 02/07 deployment. 1. The experienced the following events during deployment: Patient denies experiencing any TBI related events during deployment. Negative Screen Hallie and Elisha, denies TBI. Dm, he will do lab tomorrow, have DR Venegas's office send us notes and shot records and will ask our CPP to review our chart, labs tomorrow, scanned outside ED notes from July (sent to [facility] today) and consider trulicity here. RHS Screen: RHS Screen Environmental Check Upon inquiry, the individual reports that the environment is safe to proceed. Informed Consent to Screen and Document The individual consents to proceed with screening. The individual consents to documentation of responses. PRIMARY SCREEN: In the past 12 months, how often did a current or former intimate partner (e.g., boyfriend, girlfriend, , , sexual partner): 1. Scream or curse at you Never 2. Insult or talk down to you Never 3. Threaten you with harm Never 4. Physically hurt you Never 5. Force or pressure you to have sexual contact against your will, or when you were unable to say no Never ?? The HITS tool (items 1-4 above) is [place] copyright protected by Juan Olea MD, and the user has full rights to use it throughout the CT system. PRIMARY SCREEN RESULT: The Primary Screen is NEGATIVE. The individual answered never to all forms of IPV above (i.e., answered never to all 5 items) The individual accepts education and/or resources: Other: EDUCATION: Other: /jatin/ Sally Cih PA-C STAFF PHYSICIAN ROLLS M[employer] OPERATOR Signed: 11/08/2023 14:47 Receipt Acknowledged By: 11/10/2023 08:37 /jatin/ ISMAEL PERKINS PHARMD,BCPS CLINICAL PHARMACY PRACTITIONER 11/10/2023 ADDENDUM STATUS: COMPLETED Spoke with pt he notes the reason metformin was stopped was bc he [facility] to [facility] something else like Ozempic . He was prescribed trulicity d/t cost and dc'ed d/t cost. He was put back on meftormin and he notes he likely doesnt have kidney issues since the PA was going to increase dose of metformin. He will see office in December and get labs for us in January. He is willing to see CPP after labs. Will ask [facility] to please schedule patient for: [X] CWM/NO/PHARM/PACT 3 RTC order placed. Appointment Length: _60 minutes. 02/08/24 @0830 Thank you! /jatin/ ISMAEL PERKINS, PHARMD,BCPS CLINICAL PHARMACY PRACTITIONER Signed: 11/10/2023 08:40 Receipt Acknowledged By: * AWAITING SIGNATURE * CECELIA MEHTA,SALLY Milner CT [facility] [place] [facility] Nov 08, 2023 02:00 PM PREVENTIVE MEDICINE NURSING NOTE: LOCAL TITLE: CLINICAL REMINDERS/NURSING STANDARD TITLE: PREVENTIVE MEDICINE NURSING NOTE DATE OF NOTE: NOV 08, 2023@14:00 ENTRY DATE: NOV 08, 2023@14:00:16 AUTHOR: CALISTA WILHELM EXP COSIGNER: URGENCY: STATUS: COMPLETED CLINICAL REMINDERS/NURSING Has ADDENDA Suicide Screen: C-SSRS Screening [place] Suicide Severity Rating Scale (C-SSRS) screener 1. Over the past month, have you wished you were or wished you could go to sleep and not wake up? No 2. Over the past month, have you had any actual thoughts of killing yourself? No 3. Over the past month, have you been thinking about how you might do this? Response not required due to responses to other questions. 4. Over the past month, have you had these thoughts and had some intention of acting on them? Response not required due to responses to other questions. 5. Over the past month, have you started to work out or worked out the details of how to kill yourself? Response not required due to responses to other questions. 6. If yes, at any time in the past month did you intend to carry out this plan? Response not required due to responses to other questions. 7. In your lifetime, have you ever done anything, started to do anything, or prepared to do anything to end your life (for example, collected pills, obtained a gun, gave away valuables, went to the roof but didn't jump)? No 8. If YES, was this within the past 3 months? Response not required due to responses to other questions. Homelessness/Food Insecurity Screen: In the past 2 months, have you been living in stable housing that you own, rent, or stay in as part of a household? Yes - Living in stable housing. Are you worried or concerned that in the next 2 months you may NOT have stable housing that you own, rent, or stay in as part of a household? No - Not worried about housing near future The [place] reports the following: Within the past 12 months, you worried whether your food would run out before you got money to buy more. Never true Within the past 12 months, the food you bought just didn't last and you didn't have money to get more. Never true Depression Screening: Perform PHQ-2 A PHQ-2 screen was performed. The score was 0 which is a negative screen for depression. Over the past two weeks, how often have you been bothered by the following problems? 1. Little interest or pleasure in doing things Not at all 2. Feeling down, depressed, or hopeless Not at all Falls & Incontinence Screen: Falls Screen: During the past 12 months, did the patient report any falls? 1. One fall with no injury. Incontinence Screen: During the past 12 months, has the patient has any characteristics of incontinence (ability, voiding, leakage, etc.)? No incontinence. Tobacco Use Screening: The patient is a former tobacco user. The patient quit fifteen or more years ago. Alcohol Use Screen (AUDIT-C): Alcohol Screen: SCREEN FOR ALCOHOL (AUDIT-C) An alcohol screening test (AUDIT-C) was positive (score=5). 1. How often did you have a drink containing alcohol in the past year? Consider a drink to be a 12 ounce can or bottle of regular beer, 8 ounces of malt liquor, a 5 ounce glass of table wine, or a 1.5 ounce shot of liquor (like scotch, gin, or vodka). Four or more times a week 2. How many drinks containing alcohol did you have on a typical day when you were drinking in the past year? Three or four drinks 3. How often did you have six or more drinks on one occasion in the past year? Never PAVE Foot Check: A complete foot check was completed at this encounter. VISUAL INSPECTION: Includes inspection for skin breaks, deformity, erythema, trauma, pallor on elevation, dependent rubor, nail deformities, extensive callus and pitting edema. Visual exam results: Normal PEDAL PULSES: Includes palpation of dorsalis and posterior tibial pulses and signs/symptoms of vascular compromise like pain, pallor, parasthesia or paralysis. Present (even if diminished) SENSORY CHECK: Includes 10 gram Monofilament (Candor-Kirby) test of sensation. Intact (Greater than or equal to 80% of sites checked) Abnormal (Less than 80% of sites checked): Intact LOW-RISK: LOW RISK INFORMATION PROVIDED: 1. Advised patient not to walk barefoot. 2. Explained the importance of daily foot checks for changes. 3. Stressed the importance of daily foot hygiene, including bathing and complete drying. The patient verbalized understanding and was offered a detailed handout on diabetic foot care. /jatin/ CALISTA WILHELM LPN Signed: 11/08/2023 14:06 11/09/2023 ADDENDUM STATUS: COMPLETED COVID-19 Immunization: Moderna Monovalent (Spikevax) Administered: COVID-19 (MODERNA), MRNA, LNP-S, PF, 50 MCG/0.5 ML (AGES 12+ YEARS) Date Administered: Nov 08, 2023 14:00 Series: Series 1 Rubber Tubing Backer: [employer]. Lot: [id number] Exp Date: Mar 26, 2024 [facility]: [phone] Admin Route/Site: INTRAMUSCULAR/LEFT DELTOID Dosage: 0.5mL Vaccine Information Statement(s): COVID-19 MRNA VACCINE (12+ YRS) VACCINE VIS Mar 17, 2023 (CZECH) Order By: Policy Administered By: Calista Wilhelm Vaccine administered without complications. /jatin/ CALISTA WILHELM LPN Signed: 11/09/2023 14:[address] [facility]
--- OUTSIDE RECORDS SUMMARY | 2024-09-27 15:59 | XMS_ITS | Encounter Summary ---
Author Name [facility] [place] Address [address] [place] [id number] Care Team Providers Care Transcription Typist Name Role Phone SALLY VELIZ Primary Care [...] PART A Jan 28, 2013 PART A [id number] [phone] GUSAN,FRANDY PHEN PATIENT MEDICARE (WNR) MEDICARE (M) PART B Jan 28, 2013 PART B [id number] [phone] GUSAN,FRANDY PHEN PATIENT MEDICARE (WNR) MEDICARE (M) PART A Jan 28, 2013 PART A [id number] GUSAN,FRANDY PHEN PATIENT MEDICARE (WNR) MEDICARE (M) PART B Jan 28, 2013 PART B [id number] GUSAN,FRANDY PHEN PATIENT OPTUM RX PRESCRIPT ION RX May 30, 2022 [id number] GUSAN,FRANDY PHEN PATIENT [facility] May 30, 2017 [facility] [id number] FRANDY REID PATIENT [facility] May 30, 2017 [facility] [id number] FRANDY REID PATIENT Selected Encounter This section includes the information on record at [place] for the Encounter. Date/Time Encounter Type Encounter Description Reason Provider Source Jul 27, 2024 09:00 AM CPTRZD OPH DX IMG PST SGM ON OPTOMETRY ICD-10-CM H40.053 Ocular hypertension, bilateral MERHAR,RAFY B IHE Encounter Template Text not used by [place] Assessments - Encounter Diagnoses This section includes the primary and secondary diagnoses documented for the Encounter. Date/Time Primary/Secondary Diagnosis Diagnosis Name Provider Source Jul 27, 2024 10:10 AM PRIMARY Ocular hypertension, bilateral MERHAR,RAFY B [place] [facility] [place] [facility] Jul 27, 2024 10:10 AM SECONDARY Retinal artery branch occlusion, right eye MERHAR,RAFY B [facility] [place] [facility] Plan of Treatment: Future Appointments (+ 6 months) and Future Tests (+/- 45 days) The Plan of Treatment section includes future care activities for the patient from all [place] treatmentfacilities. This section includes future appointments and future orders which are active, pending or scheduled. Future Appointments This section includes appointments that were scheduled to occur 6 months from the date of the Encounter, up to a maximum of 20 appointments. The data comes from all [place] treatment facilities. Appointment Date/Time Appointment Type Appointme nt Facility Name Sep 21, 2024 08:00 AM AMBULATORY - MEDICINE [facility] [place] [facility] Sep 26, 2024 09:30 AM AM[facility]ATORY [place] MEDICINE [facility] [place] [facility] Sep 26, 2024 04:00 PM AMBULATORY - REHAB MEDICIN [place] [facility] [place] [facility] October 03, 2024 02:30 PM AMBULATORY - MEDICINE [facility] [place] [facility] October 25, 2024 01:00 PM AMBULATORY - REHAB MEDICIN [place] [facility] [place] [facility] Social History: Smoking Status (Most current) and Tobacco Use (All prior to encounter date) This section includes the most current, and the historical, smoking and tobacco- related health factors from the [place] facility where the Encounter took place. Current Smoking Status This section includes the most current smoking, or tobacco-related health factor, from the [place] facility where the Encounter took place. Date/Time Current Smoking Status Comment Don oscar Nov 08, 2023 02:00 PM VA-TOBACCO FORMER USER [place] [facility] [place] [facility] Tobacco Use History This section includes a history of the smoking, or tobacco-related health factors, that were collected on or before the date of the Encounter. The data comes from the [place] facility where the Encounter took place. Date/Time Smoking Status/Tobacco Use Comment F jory Nov 08, 2023 02:00 PM VA-TOBACCO QUIT 15 YRS OR MORE [place] [facility] [place] [facility] October 15, 2022 03:30 PM VA-TOBACCO FORMER USER [facility] [place] [facility] October 15, 2022 03:30 PM VA-TOBACCO QUIT 15 YRS OR MORE [place] [facility] [place] [facility] Sep 24, 2021 10:00 AM VA-TOBACCO FORMER USER [place] [facility] [place] [facility] Sep 24, 2021 10:00 AM VA-TOBACCO QUIT 15 YRS OR MORE [place] [facility] [place] [facility] Jul 10, 2020 11:00 AM VA-TOBACCO FORMER USER [place] [facility] [place] [facility] Jul 10, 2020 11:00 AM VA-TOBACCO QUIT 15 YRS OR MORE [place] [facility] [place] [facility] Encounter Notes: All associated encounter notes This section contains the clinical notes associated to the Encounter. Date/Time Encounter Note(s) Provider Source Jul 27, 2024 08:55 AM OPTOMETRY CONSULT: LOCAL TITLE: CONSULT REPORT/OPTOMETRY OCT STANDARD TITLE: OPTOMETRY CONSULT DATE OF NOTE: JUL 27, 2024@08:55 ENTRY DATE: JUL 27, 2024@08:55:09 AUTHOR: RAFY AQUINO EXP COSIGNER: URGENCY: STATUS: COMPLETED RNFL OCT report: RNFL OCT reviewed for patient considered open angle glaucoma suspect secondary to ocular hypertension OU. OD: average c/d 0.52, vertical c/d 0.57, disc area 2.05 mm^2. Average RNFL thickness 70 microns. Thin inferior OS: average c/d 0.50, vertical c/d 0.48, disc area 1.95 mm^2. Average RNFL thickness 83 microns. No thinning noted all quadrants. A/P: Borderline ocular hypertension OU with stable RNFL OCT - WNL OS, thin inferior OD which is stable and consistent with prior branch retinal artery occlusion OD. 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
== END 2024-09-27 13:40 | disposition home or self-care (01) ==
LOC: HO.XRAY 13:39
PROVIDERS: PCP Internal Medicine; Visit Provider Radiology Diagnostic Radiology
DX: Z13.89 Encounter for screening for other disorder (principal)

== ENCOUNTER 2024-09-30 13:05 | Outpatient (REF) | payer OTHER, SELFPAY ==
--- NOTE | ~2024-09-30 | MR_ITS ---
EXAMINATION: MR ANGIOGRAPHY BRAIN WITHOUT AND WITH CONTRAST CLINICAL INFORMATION: Retinal artery occlusion, left optic embolus. COMPARISON: Correlated to MRA neck TECHNIQUE: 3-D [id number]. Maximum intensity projections following the IV contrast administration. Total of 10 cc of gadolinium based given without reported immediate complications. FINDINGS: Anterior cerebral circulation: ICAs: Slight asymmetric decreased IV contrast enhancement diameter of the left ICA. No focal stenosis. No abrupt cut off. MCA's: No focal stenosis. No abrupt cut off. ACAs: Hypoplastic left A1 segment. No focal stenosis or abrupt cut off. The right ophthalmic artery demonstrates small caliber and faint enhancement. The left ophthalmic artery is nearly absent with a faint enhancement in the proximal segment. The left posterior communicating artery is present with small caliber. Posterior cerebral circulation: V3/V4 segments: Normal patency. No focal stenosis. No intimal flap. Posterior inferior cerebellar arteries are patent. Anterior inferior cerebellar arteries are patent. Basilar artery is patent without focal stenosis or intimal flap. Superior cerebellar arteries are patent. 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 No focal stenosis or abrupt cut off. MR/MR angio head wo/w con IMPRESSION: Probable embolus at the proximal left ophthalmic artery. Hypoplastic left A1 segment. Electronically signed by: Terell Hollins MD 10/01/2024 11:56 AM EDT
--- NOTE | ~2024-09-30 | MR_ITS ---
EXAMINATION: MR ANGIOGRAPHY NECK WITHOUT AND WITH CONTRAST CLINICAL INFORMATION: Original artery occlusion. COMPARISON: None available. TECHNIQUE: MRA of the neck was obtained using routine sequences without and with contrast. Intravenous contrast: Gadolinium based contrast 10 mL. No reported immediate complications The degree of stenosis determined by criteria similar to NASCET. FINDINGS: Aortic arch is not included on the axial sequences. Coronal sequence demonstrated no focal stenosis or intimal flap or aneurysm in the partial klzus-sg-ersn of the aortic arch. Right CCA: Normal patency. No focal stenosis. No intimal flap. Right ICA: No focal stenosis. No intimal flap. Left CCA: Normal patency. No focal stenosis. No intimal flap. Left ICA: There is a focal high degree stenosis in the proximal segment representing 90% diminished IV contrast enhanced lumen. No intimal flap. Decreased diameter and the distal segment. V1/V2 segments of the vertebral arteries demonstrated normal enhancement pattern without focal stenosis or intimal flap. Left vertebral artery is dominant. The origin is directly from the subclavian arteries. The vessels in the [place] are not fully depicted on these examination. There is no gross enhancement of the ophthalmic arteries. There is a hypoplastic versus atretic left A1 segment. MR/MR angio neck wo/w con IMPRESSION: 90% stenosis, proximal segment left ICA. No high degree stenosis, right ICA. Left vertebral artery is dominant. No dissection. Electronically signed by: Terell Hollins MD 10/01/2024 11:31 AM EDT
--- OUTSIDE RECORDS SUMMARY | 2024-09-30 13:09 | XMS_ITS | Continuity of Care Document ---
Author Name [facility] Organization [facility] Care Team Providers Care Skin Care Consultant Name Role Phone [facility] Unavailable Unavailable Problems Combined list of problems [...] [facility] [place] [facility] Diabetes Mellitus Type 2 ([facility] [id number]) Active [facility] Essential hypertension Active Condition [facility] Exposure to potentially hazardous substance ([facility] [id number]) Active Condition Sep 06 Entered By: CHIARA WASHINGTON Comment: Entered automatically through [facility]AL[facility] Problem List documentation program [facility] Gout * (ICD-9-CM 274.9) Active Condition [facility] Hearing Loss (SCT [id number]) Active Condition [facility] [...] artery occlusion, left eye Active Diagnosis [facility] Diagnosis: ICD-10-CM Z23 Encounter for immunization Active Diagnosis [facility] Diagnosis: ICD-10-CM E11.9 Type 2 diabetes mellitus without complications Active Diagnosis [facility] Diagnosis: ICD-10-CM Z46.0 Encounter for fit/adjst of spectacles and contact lenses Active Diagnosis [facility] Diagnosis: ICD-10-CM H34.231 Retinal artery branch occlusion, right eye Active Diagnosis [facility] Medications Combined list of outpatient medications from Department of Defense and Veterans Affairs facilities.Medications provided include 1) outpatient medications from the last 15 months, and 2) patient-reported medications. Medication Details Route Status Patient Instructions Prescription Expires Prescription Number Last Dispense Date Ordering Provider Order Date Order Qty Source ALLOPURINOL 300MG TAB TAKE ONE TABLET BY MOUTH ONCE DAILY ORAL ACTIVE SALLY VELIZ 2020 [facility] CLONIDINE HCL 0.1MG TAB TAKE ONE TABLET BY MOUTH TWICE DAILY ORAL ACTIVE SALLY VELIZ 2022 [facility] DOCUSATE NA 100MG CAP TAKE 1 CAPSULE BY MOUTH ONCE DAILY ORAL ACTIVE RA CARIE CROWELL 2021 [facility] FUROSEMIDE 20MG TAB TAKE ONE TABLET BY MOUTH ONCE DAILY ORAL ACTIVE SALLY VELIZ 2022 [facility] GABAPENTIN 300MG CAP TAKE 1 CAPSULE BY MOUTH THREE TIMES A DAY ORAL ACTIVE SALLY VELIZ 2022 [facility] IBUPROFEN TAB TAKE 200MG BY MOUTH FOUR TIMES A DAY ORAL ACTIVE RA CARIE CROWELL 2021 [facility] LOVASTATIN 40MG TAB TAKE ONE TABLET BY MOUTH ONCE DAILY ORAL ACTIVE SALLY VELIZ 2020 [facility] METFORMIN HCL 500MG TAB TAKE ONE TABLET BY MOUTH ONCE DAILY ORAL ACTIVE SALLY VELIZ 2020 [facility] METOPROLOL SUCCINATE 100MG TAB,SA TAKE ONE TABLET BY MOUTH ONCE DAILY ORAL ACTIVE RA CARIE CROWELL 2021 [facility] SILDENAFIL CITRATE 100MG TAB TAKE ONE TABLET BY MOUTH ONCE DAILY ORAL ACTIVE RA CARIE CROWELL 2021 [facility] TRAMADOL HCL 50MG TAB TAKE ONE TABLET BY MOUTH ONCE DAILY NEEDED ORAL ACTIVE SALLY VELIZ 2022 [facility] Immunizations Combined list of available immunizations from the Department of Defense and [facility] Affairs facilities. Immunization Series Date Given Administered By Site Reaction Lot Number CVX Code Drug Bonded Structures Repairer Status Comments Source INFLUENZA, HIGH-DOSE, TRIVALENT, PF 2023 RUDOLPH CUI LEFT DELTO ID [id number] 135 complet ed [facility] COVID-19 (MODERNA), MRNA, LNP-S, PF, 50 MCG/0.5 ML (AGES 12+ YEARS) 1 2023 SLIME WILHELM LEFT DELTO ID [id number] 312 complet ed [facility] INFLUENZA, HIGH-DOSE, QUADRIVALENT 2022 NABEEL AVENDANO LEFT DELTO ID [id number] 197 complet ed [facility] INFLUENZA VACCINE, QUADRIVALENT, ADJUVANTED 2020 205 complet ed [facility] COVID-19 (PFIZER), MRNA, LNP-S, PF, 30 MCG/0.3 ML DOSE 2 2020 208 complet ed PFR; [id number]; 1 LATANY[facility] RINCON COVID-19 (PFIZER), MRNA, LNP-S, PF, 30 MCG/0.3 ML DOSE 1 2020 208 complet ed PFR; [id number]; 1 [place] INFLUENZA, UNSPECIFIED FORMULATION 2019 88 complet ed [facility] [facility] influenza virus vaccine, split virus (incl. purified surface antigen)-reti red CODE 1 2006 Unknown, Provider [id number] [employer] (SKB) complet ed influenza virus vaccine, split virus (incl. purified surface antigen)- retired CODE DoD influenza virus vaccine, split virus (incl. purified surface antigen)-reti red CODE 1 2005 Unknown, Provider [id number] Other (OT) complet ed influenza virus vaccine, split virus (incl. purified surface antigen)- retired CODE DoD typhoid vaccine, parenteral, other than acetone-kille d, dried 1 2005 Unknown, Provider [id number] Sanofi Pasteur ([facility]) complet ed typhoid vaccine, parentera l, other than acetone-k illed, dried DoD influenza virus vaccine, split virus (incl. purified surface antigen)-reti red CODE 1 2004 Unknown, Provider [id number] 15 Sanofi Pasteur ([facility]) complet ed influenza virus vaccine, split virus (incl. purified surface antigen)- retired CODE [facility] tetanus and diphtheria toxoids, adsorbed, preservative free, for adult use (2 Lf of tetanus toxoid and 2 Lf of diphtheria toxoid) 1 2004 Unknown, Provider [id number] Sanofi Pasteur ([facility]) complet ed tetanus and diphtheri a toxoids, adsorbed, preservat abel free, for adult use (2 Lf of tetanus toxoid and 2 Lf of diphtheri a toxoid) [facility] influenza virus vaccine, whole virus 1 2004 Unknown, Provider [id number] 16 Margarita ([facility]) complet ed influenza virus vaccine, whole virus DoD typhoid vaccine, parenteral, other than acetone-kille d, dried 1 2003 Unknown, Provider [id number] 41 Sanofi Pasteur ([facility]) complet ed typhoid vaccine, parentera l, other than acetone-k illed, dried DoD influenza virus vaccine, whole virus 1 2002 Unknown, Provider [id number] 16 Sanofi Pasteur ([facility]) complet ed influenza virus vaccine, whole virus DoD influenza virus vaccine, whole virus 1 2001 Unknown, Provider [id number] 16 [facility] ([facility]) complet ed influenza virus vaccine, whole virus DoD influenza virus vaccine, whole virus 1 2000 Unknown, Provider [id number] 16 [facility] ([facility]) complet ed influenza virus vaccine, whole virus DoD meningococcal polysaccharid e vaccine (MPSV4) 1 2000 Unknown, Provider [id number] [employer] (CON) complet ed meningoco ccal polysacch aride vaccine (MPSV4) DoD typhoid vaccine, parenteral, other than acetone-kille d, dried 1 2000 Unknown, Provider [id number] [facility] Pasteur ([facility]) complet ed typhoid vaccine, parentera l, other than acetone-k illed, dried DoD influenza virus vaccine, whole virus 3 2000 Unknown, Provider [id number] 16 Derek (CON) complet ed influenza virus vaccine, whole virus DoD influenza virus vaccine, whole virus 1 1998 Unknown, Provider [id number] 16 Margarita ([facility]) complet ed influenza virus vaccine, whole virus DoD hepatitis A vaccine, adult dosage 2 1998 Unknown, Provider [id number] Merck (MSD) complet ed hepatitis A vaccine, adult dosage DoD measles, mumps and rubella virus vaccine 2 1997 Unknown, Provider [id number] Paredes (AB) complet ed measles, mumps and rubella virus vaccine DoD influenza virus vaccine, whole virus 2 1997 Unknown, Provider [id number] 16 Derek (CON) complet ed influenza virus [...] to the last 18 months, not all [place] inpatient encounters are included; 2) Encounters from the Department of [facility] facilities going backup to 280 months. Location Location Details Encounter Type Encounter Number Reason For Visit Attending Provider ADM Date DC Date Status Disposition Source [facility] [place] 1/ [id number] Diagnos is: ICD-10- CM H34.231 Retinal artery branch occlusi on, right eye [facility] 07[facility]14 [facility] CMPTR OPHTH IMG OPTIC NERVE [id number] Diagnos is: ICD-10- CM H40.053 Ocular hyperte nsion, bilater al [facility] H B 07/14 [facility] FIT SPECTACLES MONOFOCAL [id number] Diagnos is: ICD-10- CM Z46.0 Encount er for fit/adj st of spectac les and contact lenses [facility] H B 07/15 [facility] Outpatient Encounter [id number] 08/10 [facility] Out[facility] Encounter [id number] 08/14 [facility] OFFICE O/P EST LOW 20 MIN [id number] Diagnos is: ICD-10- CM E11.9 Type 2 diabete s mellitu s without complic ations SALLY VELIZ 11/07 [facility] En[facility] [id number] 12/19 [facility] Encounter [id number] 12/19 [facility] IMMUNIZATI ON ADMIN [id number] Diagnos is: ICD-10- CM Z23 Encount er for immuniz ation GINO,CHR ISTIE L 02/09 [facility] En[facility] [id number] 02/17 [facility] En[facility] [id number] 03/08 [facility] En[facility] [id number] 03/14 [facility] En[facility] [id number] 04/09 [facility] Out[facility] En[facility] [id number] 04/19 [facility] Encounter [id number] 05/09 [facility] Out[facility] Encounter [id number] 06/05 [facility] En[facility] [id number] 06/21 [facility] Encounter [id number] 06/27 [facility] Out[facility] Encounter [id number] 07/14 [facility] OFFICE O/P EST MOD 30 MIN [id number] Diagnos is: ICD-10- CM H34.212 Partial retinal artery occlusi on, left eye MERHAR,CLARITA H B 07/27 [facility] [place]TRZ[place] [id number] Diagnos is: ICD-10- CM H40.053 Ocular hyperte nsion, bilater al MERHAR,CLARITA H B 07/27 [facility] Out[facility] Encounter [id number] 08/01 [facility] Out[facility] Encounter [id number] 08/28 [facility] Encounter [id number] 09/21 [facility] [place] [place] OFFICE O/P EST LOW 20 MIN [id number] Diagnos is: ICD-10- CM H91.8X3 Other specifi ed hearing loss, SALLY Collazo 09/21 [facility] Outpatient Encounter [id number] 09/26 [facility] HEARING AID FITTING/CH ECKING [id number] Diagnos is: ICD-10- CM H90.3 Sensori neural hearing loss, JESUS Catalan 09/26 [facility] [place] [facility] Social History Combined list of available smoking, tobacco, and other social history from Department of Defense and Veterans Affairs facilities. Social History Type Response Date Comment Sourc e Tobacco smoking status NHIS VA-TOBACCO FORMER USER 11/08/2023 [facility] [place] [facility] History of tobacco use VA-TOBACCO QUIT 15 YRS OR MORE 11/08/2023 [facility] History of tobacco use VA-TOBACCO FORMER USER 10/15/2022 [facility] [place] [facility] History of tobacco use VA-TOBACCO FORMER USER 09/24/2021 [facility] [place] [facility] History of tobacco use VA-TOBACCO FORMER USER 07/10/2020 [facility] [place] [facility] This section is an empty social history section. [facility] Plan of Care List of future care activities from Department of Veterans Affairs facilities. Additional future care activities may be listed in the Assessment and Plan section. Date/Time Care Activity Care Activity Detail Facili ty 10/03/2024 AMBULATORY - MEDICINE AMBULATORY - [facility]ICI [facility] [place] [facility]
--- OUTSIDE RECORDS SUMMARY | 2024-09-30 13:09 | XMS_ITS | Data Portability ---
Author Organization [facility] Home Service Address [address] [place] [address] Assessment No assessment recorded. Plan of Treatment Reminders Order Date Submit Date Provider Last Modified By Organization Details Last Modified Time Details Appointments FOLLOW UP 15 2024 09:45A PIA WRIGHT Not available Not available Not available Lab uric acid, serum or plasma 2024 025 [facility], [place], [address], 09/03/2024 15:23:03 hemoglobi n A1c, QN, blood 2024 025 [facility], [place], [address], 09/03/2024 15:23:03 CMP, serum or plasma 2024 025 [facility], [place], [address], 09/03/2024 15:23:03 CBC w/ auto diff 2024 025 [facility], [place], [address], 09/03/2024 15:23:03 lipid panel, blood 2024 025 [facility], [place], [address], 09/03/2024 15:23:03 lipid panel, serum 2023 024 [facility], [place], [address], 07/27/2024 11:42:03 CMP, serum or plasma 2023 024 [facility], [place], [address], 07/27/2024 11:38:28 hemoglobi n A1c, QN, blood 2023 024 [facility], [place], [address], 07/27/2024 11:21:23 CBC w/ auto diff 2023 024 [facility], [place], [address], 07/27/2024 11:11:44 CBC w/ auto diff 2024 025 [facility], [place], [address], 07/27/2024 11:11:44 hemoglobi n A1c, QN, blood 2024 025 [facility], [place], [address], 07/27/2024 11:21:22 CMP, serum or plasma 2024 025 [facility], [place], [address], 07/27/2024 11:38:28 lipid panel, serum 2024 025 [facility], [place], [address], 07/27/2024 11:42:03 lipid panel, serum 2023 024 [facility], [place], [address], 12/20/2023 11:10:44 CMP, serum or plasma 2023 024 [facility], [place], [address], 09/23/2023 12:20:40 hemoglobi n A1c, QN, blood 2023 024 [facility], [place], [address], 12/20/2023 10:46:50 CBC w/ auto diff 2023 024 [facility], [place], [address], 09/23/2023 12:20:40 hemoglobi n A1c, QN, blood 2023 024 [facility], [place], [address], 04/09/2024 15:18:40 lipid panel, serum 2023 024 [facility], [place], [address], 04/09/2024 12:24:40 lipid panel, serum 2023 025 [facility], [place], [address], 04/09/2024 12:24:40 hemoglobi n A1c, QN, blood 2023 024 [facility], [place], [address], 04/09/2024 15:18:40 Referral orthopedi c surgeon referral 2023 024 [facility], [address] [place] [address], [address], 09/28/2023 08:17:50 Procedures None recorded. Surgeries None recorded. 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 2024 025 [facility], [address] [place], [address], 08/06/2024 09:23:32 US, duplex, carotid artery 2023 024 [facility] Central [facility]uling (Not Breast), [address] [place], [address], 04/13/2024 08:25:29 Medication Orders oxycodone 5 mg tablet 2024 025 [facility], [address] [place], [address], 09/03/2024 15:25:12 sildenafi l 100 mg tablet 2023 024 [facility], [address] [place] [address], [address], 04/11/2024 09:55:21 metformin ER 500 mg tablet,ex tended release 24 hr 2023 024 [facility], [address] [place] [address], [address], 04/11/2024 09:55:21 allopurin ol 300 mg tablet 2023 024 [facility], [address] [place] [address], [address], 12/21/2023 09:42:11 metformin ER 500 mg tablet,ex tended release 24 hr 2023 024 [facility], [address] [place] [address], [address], 12/21/2023 09:42:13 clonidine HCl 0.1 mg tablet 2023 024 [facility], [address] [place] [address], [address], 12/21/2023 09:42:10 furosemid e 20 mg tablet 2023 024 [facility], [address] [place] [address], [address], 12/21/2023 09:42:07 metoprolo l succinate ER 100 mg tablet,ex tended release 24 hr 2023 024 [facility], [address] [place] [address], [address], 12/21/2023 09:42:08 lovastati n 40 mg tablet 2023 024 [facility], [address] [place] [address], [address], 12/21/2023 09:42:04 Patient TargetsNo targets recorded. Patient [...] gram No observ ation record ed. [email or web address] [facility] (Medical Records) [address] [place] [address], [address], 09/24/2024 15:49:29 09/28/19 25 09/27/2024 XR, orbit No observ ation record ed. [email or web address] [facility] (Medical Records) [address] [place] [address], [address], 09/28/2024 08:07:35 Result Notes None recorded. 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 620003558 Active 2021 PIA JJ [address] [place] [address], [address], [facility] 2 10:26:52 Venous insuffic iency of leg 956778590 Active 2021 PIA JJ [address] [place], [address], [facility] 2 10:27:04 Herpes zoster 9390169 Active 2021 PIA JJ [address] [place], [address], [facility] 2 15:03:54 Strain of rectus abdominu s muscle 229205509 Active 2021 PIA JJ [address] [place], [address], [facility] 2 11:49:14 Cervical radiculo josué 09604224 Active 2021 PIA JJ [address] [place], [address], [facility] 2 14:29:25 Thoracic back pain 625184554 Active 2021 PIA JJ [address] [place], [address], [facility] 2 14:29:40 Rib pain 717918316 Active 2021 PIA JJ [address] [place], [address], [facility] 2 14:33:14 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 86913759444 9101 Active 2021 PIA JJ [address] [place], [address], [facility] 2 13:04:57 Neck pain 64160990 Active 2021 PIA JJ [address] [place] [address], [address], [facility] 2 10:12:30 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 PIA JJ [address] [place] [address], [address], [facility] 3 13:37:14 Osteoart hritis of left knee joint 63961722112 9109 Active 2022 Eyad Venegas DO [address] [place], [address], [facility] 3 16:54:36 Type 2 diabetes mellitus 04880343 Active 2023 PIA JJ [address] [place] [address], [address], [facility] 4 09:46:22 Atypical chest pain 669493814 Active 2023 PIA JJ [address] [place], [address], [facility] 4 09:46:43 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 563900784 Active 2023 PIA JJ [address] [place], [address], [facility] 4 09:52:23 Acute allergic reaction 841411988 Active 2023 PIA JJ [address] [place], [address], [facility] 4 12:02:57 Pain in right hand 37777553100 9109 Active 2023 PIA JJ [address] [place], [address], [facility] 4 12:03:42 Carotid atherosc lerosis 076626469 Active 2023 PIA JJ [address] [place], [address], [facility] 4 09:42:41 Chronic kidney disease stage 2 267246413 Active 2023 PIA JJ [address] [place], [address], [facility] 4 09:47:03 Carotid artery occlusio n 651681297 Active 2024 PIA JJ [address] [place], [address], [facility] 5 10:55:13 Carotid artery occlusio n 619806586 Active 2024 PIA JJ [address] [place], [address], [facility] 5 10:55:37 Arterial retinal branch occlusio n 52874325 Active 2024 PIA JJ [address] [place], [address], [facility] 5 10:57:17 Arterial retinal branch occlusio n 50621996 Active 2024 PIA JJ [address] [place], [address], [facility] 5 10:57:29 Palpitat ions 87287813 Active 2024 PIA JJ [address] [place], [address], [facility] 5 11:02:38 Fracture of rib 40381691 Active 2024 PIA JJ [address] [place], [address], [facility] 5 15:24:44 Essentia l hyperten bi 82020497 Active 2017 [facility] 8 16:47:12 Gout 74572432 Active 2017 [facility] 8 16:47:16 Hyperlip idemia 44579289 Active 2017 [facility] 8 16:47:24 Impotenc e Active 2017 KWADWO NairALEJANDRO [address] [place] [address], [address], [facility] 8 09:45:26 Impaired fasting glycemia 089302915 Completed 201709/12/2019 Eyad Venegas DO [address] [place] [address], [address], [facility] 0 11:12:17 Type 2 diabetes mellitus without complica tion 918214909 Active 2017 KWADWO KellyALEJANDRO [address] [place], [address], [facility] 8 10:41:07 Problem Notes None recorded. Procedures Surgical History Date Name Laterality Status Provider Name and Address Organization Details Recorded Time 023 Corticosteroid Injection completed Eyad Venegas DO [address] [place] [address], [address], [facility] 03/25/2023 16:53:57 Imaging Results Imaging Date Name Status LastModified by Organization Details LastModified Time 09/24/2024 US, echocardiogram completed [email or web address] [facility] (Medical Records) [address] [place], [address], 09/24/2024 15:49:29 09/27/2024 XR, orbit completed [email or web address] [facility] (Medical Records) [address] [place], [address], 09/28/2024 08:07:35 Procedure Notes None recorded. Medical Equipment None [...] Updated DateTime 4 179.71 cm 31.4 kg/m2 245813. 18 g 76 /min 16 /min 96 [...] Updated DateTime 4 179.07 cm 31.4 kg/m2 462726. 51 g 64 /min 97 % 97 % 126 mm[Hg] 76 mm[Hg] [facility] 4 09:29:38 Date Recorded Body height Body mass index (BMI) Body weight Heart rate Oxygen saturation Oxygen saturation in Arterial blood by Pulse oximetry Systolic blood pressure Diastolic blood pressure Provider Name and Address Organization Details Last Updated DateTime 4 179.07 cm 31.4 kg/m2 021081. 15 g 54 /min 98 % 98 % 164 mm[Hg] 78 mm[Hg] Emileesoledad Crooks [facility] 4 09:37:42 Date Recorded Body height Body mass index (BMI) Body weight Heart rate Oxygen saturation Oxygen saturation in Arterial blood by Pulse oximetry Systolic blood pressure Diastolic blood pressure Provider Name and Address Organization Details Last Updated DateTime 5 179.07 cm 31.7 kg/m2 894356. 69 g 55 /min 97 % 97 % 142 mm[Hg] 80 mm[Hg] Emilee Crooks [facility] 5 10:48:39 Social History Question Answer Notes LastModified by Say-Hey ion Details LastModified Time Tobacco Smoking Status Former Smoker Not Available [facility] 04/01/2020 03:36:24 What Is Your Occupation? Retired [id number] Information not available 04/01/2020 What Was The Date Of Your Most Recent Tobacco Screening? 07/30/2024 [email or web address] Information not available 07/30/2024 How Many Years Have You Smoked Tobacco? 15 [id number] Information not available 04/01/2020 Do You Or Have You Ever Used Any Other Forms Of Tobacco Or Nicotine? No [email or web address] Information not available 11/05/2022 Sex: Unknown Functional Status None recorded. Mental Status None recorded. Family History Nothing Reported. Medical History No medical history recorded. Immunizations Vaccine Type Date Status Note Provider Nam e and Address Organization Details Recorded Time COVID-19, mRNA, LNP-S, PF, 30 mcg/0.3 mL dose 2 completed Not Available [facility] 07/20/2023 12:16:38 influenza, unspecified formulation 2 completed Not Available [facility] 07/20/2023 12:16:38 Pneumococcal Conjugate, unspecified formulation 3 completed Not Available [facility] 07/20/2023 12:16:38 Tdap 0 completed Not Available [facility] 07/20/2023 12:16:38 Pneumococcal conjugate PCV 13 0 completed Not Available [facility] 07/20/2023 12:16:38 COVID-19, mRNA, LNP-S, PF, 30 mcg/0.3 mL dose 1 completed Not Available [facility] 07/20/2023 12:16:37 COVID-19, mRNA, LNP-S, PF, 30 mcg/0.3 mL dose 1 completed Not Available [facility] 07/20/2023 12:16:38 Tdap 0 completed Not Available [facility] 07/20/2023 12:16:38 Past Encounters Encounter ID Performer Location Encounter Start Date Encounter Closed Date Diagnosis/Indication Diagnosis SNOMED-CT Code Diagnosis ICD10 Code Diagnosis Note [id number] Eyad Venegas DO [facility] [address] [facility],[place] [address] 11/15/2017 09:17:54 11/15/2017 13:19:28 Hyperlipidemia 98357722 E78.5 will recheck Essential hypertension 89591804 I10 Gout 82608010 M10.9 Impaired f asting glycemia 162607586 R73.01 Impotence 767298331 N52. 9 Venereal d isease screening 686715703 Z11.3 [id number] Eyad Venegas DO [facility] [address],[place] [address] 12/06/2017 10:17:52 12/06/2017 11:20:43 Type 2 diabetes mellitus without complication 922585035 E11.9 meter teaching diet and exercise Hyperlipidemia 15607783 E78.5 will recheck in 6 months generally at goal discussed improvemen ts for increasing HDL Gout 96017758 M10.9 mildly elevated no gout flares will recheck Essential hypertension 14560455 I10 elevated likely very anxious [id number] Eyad Venegas DO [facility] [address],[place] [address] 12/22/2018 09:31:43 12/22/2018 10:10:18 Type 2 diabetes mellitus without complication 138455148 E11.9 will add metformin xr Essential hypertension 80551647 I10 Abdominal aortic aneurysm screening 425792371 Z13.6 Hepatitis C screening 41 4508793 Z11.59 [id number] Eyad Venegas [facility] [address],[place] [address] 06/08/2019 14:17:09 06/08/2019 14:45:52 Type 2 diabetes mellitus without complication 081635715 E11.9 metformin xr 500 a1c 7.2 was 6.8 was thru holidays was [pos for microalb Hyperlipidemia 60031462 E78.5 cont lovastatin all other lab good Essential hypertension 81621329 I10 stab;le no need to change meds [id number] Eyad Venegas [facility] [address],[place] [address] 09/12/2019 10:44:31 09/12/2019 11:50:27 Essential hypertension 04230926 I10 stab;le no need to change meds Gout 51274030 M10.9 stable since on allopurino l Type 2 abhay betes mellitus without complication 449659520 E11.9 metformin xr 500 a1c is 7.4 was 7.2 and was 6.8 was thru holidays was [pos for microalb [id number] Eyad Venegas [facility] [address],[place] [address] 09/18/2019 09:56:50 09/18/2019 11:33:37 Herpes zoster 2931487 B02.9 Type 2 abhay betes mellitus without complication 648214342 E11.9 meter teaching diet and exercise Essential hypertension 48200449 I10 mildly elevated [id number] Eyad Venegas [facility] [address] [facility] [address],[place] [address] 01/28/2020 15:11:55 01/28/2020 15:35:02 Type 2 diabetes mellitus without complication 390572347 E11.9 metformin xr 500 a1c is 7.4 was 7.2 and was 6.8 was thru holidays was [pos for microalb Essential hypertension 16786021 I10 stab;le no need to change meds Pain in left foot 048187 8530 01303 M79.672 from trauma on bottom of foot [id number] Eyad Venegas [facility] [address] [facility] [address],[place] [address] 10/08/2020 09:09:27 10/08/2020 10:08:17 Type 2 diabetes mellitus without complication 638438747 E11.9 a1c better now at 6.5 has cut down etoh Essential hypertension 10955833 I10 stab;le no need to change meds Hyperlipidemia 79962237 E78.5 cont lovastatin all other lab good Microalbuminuria 5756420 06 R80.9 rech in 3 mo [id number] Eyad Venegas [facility] [address] [facility] [facility],[place] [address] 11/05/2020 14:36:37 11/05/2020 15:00:02 Pain of left hip joint 1989415973 29717 M25.552 will start with XR, NSAID and follow up with ortho as well [id number] Eyad Venegas [facility] [address] [facility] [address],[place] [address] 01/21/2021 14:39:46 01/21/2021 15:39:13 Essential hypertension 63022781 I10 BP recheck 200/100sta rt on metoprolol 50 mgcheck in two weeks Pain of ri ght hip joint 6529409158 00449 M25.551 will start on tramadol for management of tooth and hip pain until he has surgery Malignant essential hypertension 60593867 I10 recheck prior to at 01/21/21con tinue current medication s [id number] Eyad Venegas DO [facility] [address] [facility] [address] [address] 02/03/2021 09:19:49 02/03/2021 11:53:10 Essential hypertension 34266267 I10 BP recheck was 160/70will increase dose to 100 mg metoprolol will also have him continue tramadol for pain control as well Osteoarthritis of hip 23 9143460 M16.12 has fu with surgeon [id number] Eyad Venegas DO [facility] [address] [facility] [address] [address] 02/10/2021 08:53:57 02/10/2021 09:59:58 Essential hypertension 74304924 I10 bp is now stable with medication adjustment and he is now cleared for the proposed procedure Gout 88095077 M10.9 stable since on allopurino l Type 2 abhay betes mellitus without complication 158946762 E11.9 a1c better now at 6.5has kept the weight off Arthropath y of left hip joint 1891246066 2191735 M12.852 he will need to have his pre op eval next week after we get this bp down Primary er ectile dysfunction 575194538 N52.9 Preoperati ve cardiovascular examination 920092034 Z01.810 now with bp controlled , the [...] us if any suddin change or problem. [id number] Eyad Venegas [facility] [address] [facility] [address] 04/27/2021 11:05:08 04/27/2021 15:18:02 Essential hypertension 40974660 I10 bp is now stable with medication adjustment and he is now cleared for the proposed procedure Hyperlipidemia 52035766 E78.5 cont lovastatin all other lab good [id number] Eyad Venegas [facility] [address] [facility],[place] [address] 11/10/2021 09:27:48 11/10/2021 10:03:35 Essential hypertension 08142110 I10 will fu with d/c amlodipine and start lasix Type 2 abhay betes mellitus without complication 726840986 E11.9 A1c is 6.4% which is excellent Hyperlipidemia 10648677 E78.2 low cardiovasc ular risk score, cholestero l is borderline , will hold off increasing statin dosing due to side effect risk for patient Edema of l ower extremity 815037544 R60.0 will fu with US duplex venous Primary er ectile dysfunction 795112342 N52.1 will send to refill Gout 51891556 M10.071 will fu with refill [id number] Eyad Venegas [facility] [address],[place] [address] 02/05/2022 11:22:33 02/05/2022 15:13:26 Herpes zoster 2476631 B02.9 probable shingles [id number] Eyad Venegas [facility] [address] [facility],[place] [address] 02/16/2022 11:13:03 02/16/2022 12:00:37 Strain of rectus abdominus muscle 017008252 S39.011A will start on meloxicam and gabapentin for the muscle strain Costal chondritis 424973 04 M94.0 will call with an update Hyperlipidemia 71900451 E78.2 low cardiovasc ular risk score, cholestero l is borderline , will hold off increasing statin dosing due to side effect risk for patient [id number] [facility] [address] [facility],[place] [address] 03/09/2022 14:10:42 03/09/2022 16:29:48 Type 2 diabetes mellitus without complication 481341880 E11.9 A1c is 6.4% which is excellent Hyperlipidemia 80340795 E78.2 low cardiovasc ular risk score, cholestero l is borderline , will hold off increasing statin dosing due to side effect risk for patient Essential hypertension 03519203 I10 will fu with d/c amlodipine and start lasix Cervical radiculopathy 96314397 M54.12 will f/u with XR cervical spine and thoracic for continued Thoracic back pain 31012 8004 M54.6 will f/u with XR cervical spine and thoracic for continued Rib pain 350522137 R07.8 1 [id number] Eyad Venegas [facility] [address] [facility],[place] [address] 04/28/2022 09:46:33 04/28/2022 12:03:49 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 2801732153 58068 M48.14 will be seeing PT for this and ortho Neck pain 34871157 M54.2 will f/u with patient seeing specialist told patient we cannot refill the percocet but we can try the tramadol again Hyperlipidemia 94742134 E78.2 patient got blood-work done when he was eating holiday foods beforehand [id number] Eyad Venegas [facility] [address] [facility] [address] [address] 09/06/2022 13:21:01 09/06/2022 14:06:31 Essential hypertension 17691368 I10 add clonidinew ill have to taper of the metoprolol after his surgeryavo iding to many changes at once Type 2 abhay betes mellitus without complication 983364410 E11.9 A1c is 6.4% which is excellent Squamous c ell carcinoma of lip 003021841 C44.02 has procedure scheduled for this week (surface level cancerous changes)leif Michael do the procedure Neck pain 83815302 M54.2 restart tramadolha s procedure coming up if very painful told him we could start him on oxy for a week course [id number] Eyad Venegas [facility] [address] [facility],[place] [address] 10/04/2022 09:05:22 10/04/2022 09:35:23 Hypertensive disorder 83671680 I10 stable on med combowill continue to monitor Type 2 abhay betes mellitus without complication 466792519 E11.9 A1c is 6.4% which is excellentw [place] [facility] [id number] Eyad Venegas DO [facility] [address] [facility] [address] [address] 11/05/2022 09:50:34 11/05/2022 10:32:22 Essential hypertension 84365332 I10 doing better on his current combinatio n of meds Type 2 abhay betes mellitus without complication 112141086 E11.9 stable Cervical radiculopathy 04995176 M54.12 stable [id number] Eyad Venegas [facility] [address] [facility] [address] [address] 12/07/2022 09:20:05 12/07/2022 15:26:15 Type 2 diabetes mellitus without complication 451181377 E11.9 stable Hyperlipidemia 07973628 E78.2 working on his diethis cholestero l was good; LDL a little elevated but easily correctabl e with diet changes Gout 89718742 M10.071 stable [id number] Eyad Venegas [facility] [address] [facility] [address],[place] [address] 03/16/2023 09:32:22 03/16/2023 10:03:23 Gout 94882506 M10.071 stable Primary er ectile dysfunction 688086879 N52.1 will send to refill [id number] Eyad Venegas [facility] [address] [facility],[place], [place] [address] 03/25/2023 16:17:45 03/28/2023 11:54:37 Essential hypertension 20581236 I10 bp is now stable with medication adjustment and he is now cleared for the proposed procedure Hyperlipidemia 31607446 E78.2 cont lovastatin all other lab good Osteoarthr itis of left knee joint [id number] 08553 M17.12 awais inj well carley [id number] Eyad Venegas [facility] [address] [facility] [address],[place] [address] 05/10/2023 08:57:05 05/11/2023 08:26:49 Type 2 diabetes mellitus 13529113 E11.9 will set up with ozempic for better sugar control Cervical radiculopathy 46115727 M54.12 stable Essential hypertension 61431573 I10 BP stable at home [id number] Eyad Venegas [facility] [address] [facility] [address],[place] [address] 06/29/2023 09:22:22 06/29/2023 10:01:34 Essential hypertension 57743583 I10 BP stable at home Hyperlipidemia 02505586 E78.2 working on his diethis cholestero l was good; LDL a little elevated but easily correctabl e with diet changes Type 2 abhay betes mellitus without complication 142895893 E11.9 stable Type 2 abhay betes mellitus 12879464 E11.9 [facility] since it can be pricey for patient Atypical chest pain 1025 50313 R07.89 will set up with US echo Neck pain 24992352 M54.2 restart tramadolha s procedure coming up if very painful told him we could start him on oxy for a week course Ulnar nerv e entrapment at elbow 099852055 G56.21 will monitor to see what triggers it [id number] Eyad Venegas [facility] [address] [facility] [address],[place] [address] 09/14/2023 08:37:53 09/19/2023 13:24:55 Type 2 diabetes mellitus without complication 023633463 E11.9 stable [id number] Eyad Venegas [facility] [address] [facility] [address],[place] [address] 09/23/2023 11:41:55 09/23/2023 13:46:29 Squamous cell carcinoma of lip 407860585 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 stable Type 2 abhay betes mellitus without complication 378892718 E11.9 stable Acute roslyn rgic reaction 009525924 T78.40XD probable severe reaction to pollen Pain in right hand 86698 49597 09862 M79.641 will send in referral [id number] Eyad Venegas [facility] [address] [facility] [address],[place] [address] 12/21/2023 09:13:18 12/23/2023 12:14:46 Depression screening 294928561 Z13.31 negative Gout 20060535 M10.071 stable Essential hypertension 98391031 I10 BP stable at home Hyperlipidemia 35886497 E78.2 working on his diethis cholestero l was good; LDL a little elevated but easily correctabl e with diet changes Type 2 abhay betes mellitus without complication 147236018 E11.9 [facility] suggested going back on the injectable (but will get them the name of the pharmacy) [id number] Eyad Venegas [facility] [address] [facility] [address],[place] [address] 04/11/2024 09:29:10 04/11/2024 09:57:11 Primary erectile dysfunction 452024683 N52.1 will send to refill Carotid atherosclerosis 241283971 I65.29 set up with repeat screening Type 2 abhay betes mellitus without complication 150579812 E11.9 [facility] suggested going back on the injectable (but will get them the name of the pharmacy) Chronic ki dney disease stage 2 754283652 N18.2 stable, improving values [id number] [facility] [address] [facility],[place] [address] 07/30/2024 10:42:46 07/30/2024 15:06:46 Essential hypertension 77958049 I10 BP stable at home Chronic ki dney disease stage 2 818606585 N18.2 stable, improving values Hyperlipidemia 97702415 E78.2 working on his diethis cholestero l was good; LDL a little elevated but easily correctabl e with diet changes Type 2 abhay betes mellitus without complication 450801484 E11.9 stable Depression screening 171 948182 Z13.31 negative Arterial r etinal branch occlusion 77092428 H34.232 set up with MRA Palpitations 27444311 R0 0.2 will switch echo to [facility] [place] [place] with the holter and MRA neck and brain [id number] [facility] [address] [facility],[place] [address] 09/03/2024 10:06:54 09/03/2024 15:31:12 Type 2 diabetes mellitus 13687524 E11.9 needs updated standing orders Hyperlipidemia 26325527 E78.2 working on his diethis cholestero l was good; LDL a little elevated but easily correctabl e with diet changes Gout 52670154 M10.071 stable Chronic ki dney disease stage 2 405891209 N18.2 stable, improving values Fracture of rib 36392123 S22.31XA will fu in a few weeks for recheck XR Health Concerns Section Related Observation LastModified by Organization Detai ls LastModified Time None Recorded Concern Status LastModified by Organization Details LastModified Time None Recorded Advance Directives Directive None Recorded Payers Encounter Date Sequence Insurance Name Policy Number Policy Strickland Covered Member ID Strickland Member ID Guarantor Name 09/23/2023 1 [facility] [employer] (POS) [id number] Ganesh Rae [id number] Ganesh Rae 12/21/2023 1 [facility] [employer] (POS) [id number] Ganesh Rae [id number] Ganesh Rae 04/11/2024 1 [facility] [employer] (POS) [id number] Ganesh Rae [id number] Ganesh Rae 07/30/2024 1 [facility] [employer] (POS) [id number] Ganesh Rae [id number] Ganesh Rae 09/03/2024 1 [facility] [employer] (POS) [id number] Ganesh Rae [id number] Ganesh Rae Notes Date Note Type Note [...] reaction to the pollen down in the [facility] where he was will monitor PIA JJ [address] [place] [address], [phone], [facility] 09/23/2023 12:18:16 4 text/html f/u [...] was all normal otherwise PIA JJ [address] [place], [address], [facility] 12/21/2023 09:53:35 4 text/html 3 [...] metformin, recheck 3 mos PIA JJ [address] [place], [address], [facility] 04/11/2024 09:56:46 5 text/html 3 [...] MRAreordered echo, added holter PIA JJ [address] [place], [address], [facility] 07/30/2024 11:10:03 5 text/html f/u ER, rib fx The patient is participating in this appointment via telemedicine communication with a phone call/video calling service ([employer])The patient consents to use of these platforms [...] get in touch with PIA JJ [address] [facility], [place], [address], [facility] 09/03/2024 15:27:32
[2024-09-30] MEDS: gadobutroL 10 ML VIAL IVPUSH (14:18)
== END 2024-09-30 13:06 | disposition home or self-care (01) ==
LOC: HO.MRI 13:05
PROVIDERS: PCP Internal Medicine; Visit Provider Physician Assistant
DX: H34.232 Retinal artery branch occlusion, left eye (principal)
CPT/HCPCS: 70546; 70549; A9585

== ENCOUNTER → 2024-09-30 13:25 | Outpatient (BNV) | payer OTHER, SELFPAY | PROVIDERS: PCP Internal Medicine; Visit Provider Radiology Diagnostic Radiology | DX: I65.22 Occlusion and stenosis of left carotid artery (principal); H34.232 Retinal artery branch occlusion, left eye | CPT/HCPCS: 70546; 70549 ==